=== PATIENT | female | born 1990 | race American Indian/Alaskan Native ===

== ENCOUNTER 2016-04-03 15:16 | Emergency (ER) | payer SELFPAY ==
[2016-04-03] MEDS ORDERED: TORADOL IM ONE (18:08)
--- NOTE | 2016-04-03 18:16 | Emergency Department Report ---
- General Chief Complaint: Upper Respiratory Infection Stated Complaint: SORE THROAT/SINUSES/HEADACHE Time Seen by Provider: 04/03/16 18:00 Source: patient Mode of arrival: Ambulatory Limitations: No Limitations - History of Present Illness Initial Comments: 25 y/o female complain of sore throat ,headache and runny nose x 3 days .pt denies taken any prior medication . MD Complaint: fever, cough, sore throat, nasal congestion Onset/Timin -: days(s) Severity: mild Severity scale (0 -10): 5 Quality: aching Consistency: constant Improves With: nothing Worsens With: nothing Associated Symptoms: denies other symptoms - Related Data Previous Rx's Medication Instructions Recorded Last Taken Type Amoxicillin/K Clav Tab [Augmentin 1 tab PO Q12HR #14 tab 04/03/16 Unknown Rx 875 mg] Ibuprofen [Motrin] 800 mg PO Q8HR PRN #30 tablet 04/03/16 Unknown Rx Promethazine Dm [Phenergan DM 5 ml PO Q6H PRN #120 04/03/16 Unknown Rx 6.25-15 mg/5 ml] Allergies Allergy/AdvReac Type Severity Reaction Status Date / Time No Known Allergies Allergy Unverified 04/03/16 16:10 ED Review of Systems ROS: Stated complaint: SORE THROAT/SINUSES/HEADACHE Other details as noted in HPI Constitutional: denies: chills, fever Eyes: denies: eye pain, eye discharge, vision change ENT: throat pain, congestion. denies: ear pain Respiratory: cough. denies: shortness of breath, wheezing Cardiovascular: denies: chest pain, palpitations Endocrine: no symptoms reported Gastrointestinal: denies: abdominal pain, nausea, diarrhea Genitourinary: denies: urgency, dysuria, discharge Musculoskeletal: denies: back pain, joint swelling, arthralgia Skin: denies: rash, lesions Neurological: denies: headache, weakness, paresthesias Psychiatric: denies: anxiety, depression Hematological/Lymphatic: denies: easy bleeding, easy bruising ED Past Medical Hx - Medications Home Medications: Home Medications Medication Instructions Recorded Confirmed Last Taken Type Amoxicillin/K Clav Tab [Augmentin 1 tab PO Q12HR #14 tab 04/03/16 Unknown Rx 875 mg] Ibuprofen [Motrin] 800 mg PO Q8HR PRN #30 tablet 04/03/16 Unknown Rx Promethazine Dm [Phenergan DM 5 ml PO Q6H PRN #120 04/03/16 Unknown Rx 6.25-15 mg/5 ml] ED Physical Exam - General Limitations: No Limitations General appearance: alert, in no apparent distress - Head Head exam: Present: atraumatic, normocephalic - Eye Eye exam: Present: normal appearance - ENT ENT exam: Present: mucous membranes moist - Expanded ENT Exam Expanded TM/Canal exam: Mastoid Tenderness: Right TM, Left TM Mouth exam: Present: normal external inspection Teeth exam: Present: normal inspection Throat exam: Positive: tonsillar erythema, tonsillomegaly, other (post nasal drip ) - Neck Neck exam: Present: normal inspection - Respiratory Respiratory exam: Present: normal lung sounds bilaterally. Absent: respiratory distress, wheezes, rales - Cardiovascular Cardiovascular Exam: Present: regular rate, normal rhythm. Absent: systolic murmur, diastolic murmur, rubs, gallop - GI/Abdominal GI/Abdominal exam: Present: soft, normal bowel sounds - Extremities Exam Extremities exam: Present: normal inspection - Back Exam Back exam: Present: normal inspection - Neurological Exam Neurological exam: Present: alert, oriented X3 - Psychiatric Psychiatric exam: Present: normal affect, normal mood - Skin Skin exam: Present: warm, dry, intact, normal color. Absent: rash ED Course Vital Signs 04/03/16 04/03/16 16:10 18:23 Temperature 99 F Pulse Rate 104 H 72 Respiratory 18 16 Rate Blood Pressure 95/64 Blood Pressure 98/63 [Right] O2 Sat by Pulse 97 100 Oximetry ED Medical Decision Making - Medical Decision Making sinusitis and pharyngitis pt was given toradol and decardon during ED course Critical care attestation.: If time is entered above; I have spent that time in minutes in the direct care of this critically ill patient, excluding procedure time. ED Disposition Clinical Impression: Sinusitis Qualifiers: Sinusitis location: frontal Chronicity: acute Recurrence: non-recurrent Qualified Code(s): J01.10 - Acute frontal sinusitis, unspecified Pharyngitis Qualifiers: Pharyngitis/tonsillitis etiology: unspecified etiology Qualified Code(s): J02.9 - Acute pharyngitis, unspecified Disposition: DISCHARGED TO HOME OR SELFCARE Is pt being admited?: No Does the pt Need Aspirin: No Condition: Stable Instructions: Sinusitis (ED), Pharyngitis (ED) Prescriptions: Amoxicillin/K Clav Tab [Augmentin 875 mg] 1 tab PO Q12HR #14 tab Ibuprofen [Motrin] 800 mg PO Q8HR PRN #30 tablet PRN Reason: Pain Promethazine Dm [Phenergan DM 6.25-15 mg/5 ml] 5 ml PO Q6H PRN #120 PRN Reason: Cough Referrals: PRIMARY CARE, [Primary Care Provider] - 3-5 Days [facility] [Outside] - 3-5 Days Forms: Work/School Release Form(ED) Time of Disposition: 18:38
[2016-04-03 18:24] VITALS: BP 98/63
[2016-04-03] MEDS ORDERED: DECADRON IM ONE (18:27)
== END 2016-04-03 18:51 | disposition home or self-care (01) ==
LOC: ED 15:16
DX: J01.10 Acute frontal sinusitis, unspecified (principal); J20.9 Acute bronchitis, unspecified
CPT/HCPCS: 87116; 87430; 96372; 99282; J1100; J1885

== ENCOUNTER 2016-05-23 00:51 | Emergency (ER) | payer SELFPAY ==
[2016-05-23 02:02] VITALS: BP 120/78
[2016-05-23] MEDS ORDERED: ZOFRAN ODT PO ONE (02:03)
[2016-05-23 03:53] LABS: Basophils % (Auto) 0.8 % (0.0-1.8); Eosinophils % (Auto) 0.6 % (0.0-4.3); Hematocrit 38.3 % (30.3-42.9); Hemoglobin 12.5 gm/dl (10.1-14.3); Mean Corpuscular HGB Conc 33 % (30-34); Mean Corpuscular Hemoglobin 30 pg (28-32); Mean Corpuscular Volume 93 fl (79-97); Platelet Count 247 K/mm3 (140-440); Red Blood Count 4.12 M/mm3 (3.65-5.03); Red Cell Distribution Width 13.8 % (13.2-15.2); White Blood Count 6.6 K/mm3 (4.5-11.0)
[2016-05-23 04:15] LABS: Alanine Aminotransferase 18 units/L (7-56); Albumin 3.9 g/dL (3.9-5); Albumin/Globulin Ratio 1.4 %; Alkaline Phosphatase 108 units/L (35-129); Anion Gap 16 mmol/L; BUN/Creatinine Ratio 17.14; Bilirubin,Total 0.4 mg/dL (0.1-1.2); Blood Urea Nitrogen 12 mg/dL (7-17); Calcium 8.7 mg/dL (8.4-10.2); Carbon Dioxide 23 mmol/L (22-30); Chloride 105.6 mmol/L (98-107); Glucose 97 mg/dL (65-100); Lipase 36 units/L (13-60); Potassium 3.9 mmol/L (3.6-5.0); Sodium 141 mmol/L (137-145); Total Protein 6.7 g/dL (6.3-8.2)
[2016-05-23 07:21] LABS: Bilirubin,Urine NEG (Negative); Blood,Urine NEG (Negative); Ketones,Urine NEG (Negative); Leukocyte Esterase,Urine NEG (Negative); Nitrite,Urine NEG (Negative); Protein,Urine <15 mg/dL mg/dL (Negative); RBC,Urine < 1.0 /HPF (0.0-6.0); Urobilinogen,Urine < 2.0 mg/dL (<2.0); WBC,Urine < 1.0 /HPF (0.0-6.0)
== END 2016-05-23 07:42 | disposition left against medical advice (07) ==
LOC: ED 00:51
DX: R10.9 Unspecified abdominal pain (principal); R11.2 Nausea with vomiting, unspecified; Z53.21 Procedure and treatment not carried out due to patient leaving prior to being seen by health care provider
CPT/HCPCS: 36415; 80053; 81001; 83690; 84703; 85025; Q0162

== ENCOUNTER 2017-04-28 05:41 | Emergency (ER) | payer SELFPAY ==
[2017-04-28 06:53] LABS: Basophils % (Auto) 1.1 % (0.0-1.8); Eosinophils % (Auto) 0.7 % (0.0-4.3); Hematocrit 37.5 % (30.3-42.9); Hemoglobin 12.6 gm/dl (10.1-14.3); Lymphocytes # (Auto) 0.3 K/mm3 (1.2-5.4); Lymphocytes % (Auto) 6.2 % (13.4-35.0); Mean Corpuscular HGB Conc 34 % (30-34); Mean Corpuscular Hemoglobin 31 pg (28-32); Mean Corpuscular Volume 92 fl (79-97); Monocytes # (Auto) 0.7 K/mm3 (0.0-0.8); Monocytes % (Auto) 14.6 % (0.0-7.3); Platelet Count 218 K/mm3 (140-440); Red Blood Count 4.08 M/mm3 (3.65-5.03); Red Cell Distribution Width 13.4 % (13.2-15.2)
[2017-04-28 07:13] LABS: Alanine Aminotransferase 10 units/L (7-56); Albumin 3.8 g/dL (3.9-5); BUN/Creatinine Ratio 9; Blood Urea Nitrogen 6 mg/dL (7-17); Calcium 8.6 mg/dL (8.4-10.2); Hemolysis Index 2; Lipase 15 units/L (13-60)
--- NOTE | 2017-04-28 09:40 | XRay Report ---
ABDOMINAL SERIES: History: Abdominal pain. Erect chest film shows no acute or significant changes involving the heart or lung cohen. Trace left pleural effusion or minor left basilar atelectasis is suspected. There is no evidence of free air beneath the diaphragms. The gas pattern within the abdomen is unremarkable. There is no evidence of bowel dilatation, significant air-fluid levels, or masses. Organ shadows are unremarkable. IMPRESSION: Unremarkable abdomen. Possible trace left pleural effusion. Pleurisy?
[2017-04-28] MEDS ORDERED: TORADOL IV ONE (09:46)
[2017-04-28] MEDS ORDERED: NACL 0.9% 1000 ML 1,000 ML IV ONE (09:46)
[2017-04-28] MEDS ORDERED: ZOFRAN IV ONE (09:46)
[2017-04-28 10:51] LABS: Bacteria,Urine 1+ /HPF (Negative); Bilirubin,Urine NEG (Negative); Blood,Urine NEG (Negative); Color,Urine Yellow (Yellow); Mucus,Urine 1+ /HPF; Protein,Urine <15 mg/dL mg/dL (Negative)
[2017-04-28 11:00] LABS: Amphetamine Screen,Urine PRESUMPTIVE NEGATIVE; Benzodiazepines Screen,Urine PRESUMPTIVE NEGATIVE; Cannabinoid Screen,Urine PRESUMPTIVE NEGATIVE; Cocaine Screen,Urine PRESUMPTIVE NEGATIVE; Methadone Screen,Urine PRESUMPTIVE NEGATIVE; Opiate Screen,Urine PRESUMPTIVE NEGATIVE
[2017-04-28] MEDS ORDERED: LIDOCAINE VISCOUS 2% ONE (11:27)
[2017-04-28] MEDS ORDERED: LIDOCAINE VISCOUS 2% PO ONE ×2 (11:34→11:47)
[2017-04-28] MEDS ORDERED: TESSALON PERLES PO ONE (11:47)
--- NOTE | 2017-04-28 11:57 | Emergency Department Report ---
HPI - General Chief Complaint: Abdominal Pain Time Seen by Provider: 04/28/17 09:42 - HPI HPI: The patient is 26-year-old female who presents for evaluation of abdominal pain in the URI symptoms. The patient reports a nonproductive cough and soreness of throat since last night at 10 PM. She states that 3 hours prior to arrival she developed nausea, vomiting, and crampy in quality epigastric abdominal pain, currently 5/10 in severity, exacerbated with vomiting. The patient denies fever , chills, night sweats, chest pain, dyspnea, hemoptysis, diarrhea, blood in the stool, dark tarry stool, dysuria, hematuria, flank pain, genital discharge, inability to pass flatus. ED Past Medical Hx - Past Medical History Previous Medical History?: No - Surgical History Past Surgical History?: No - Social History Smoking Status: Current Every Day Smoker Substance Use Type: None - Medications Home Medications: Home Medications Medication Instructions Recorded Confirmed Last Taken Type Ibuprofen [Motrin 200 MG tab] 800 mg PO Q8H PRN 04/28/17 04/28/17 Unknown History Ibuprofen [Motrin] 800 mg PO Q8HR PRN #15 tablet 04/28/17 Unknown Rx Ondansetron [Zofran TAB] 4 mg PO Q8HR PRN #20 tablet 04/28/17 Unknown Rx Phenylephrine/Dm/Acetaminop/GG 20 ml PO Q4HR PRN #180 liquid 04/28/17 Unknown Rx [Mucinex Opvm-Hfi-Jcmesvppfz Lq] ED Review of Systems ROS: Stated complaint: NAUSEA Other details as noted in HPI Constitutional: denies: fever ENT: reports throat or neck pain Respiratory: reports cough denies: shortness of breath Cardiovascular: reports chest pain Endocrine: denies unexplained weight loss or gain Gastrointestinal: reports abdominal pain, nausea Genitourinary: denies: dysuria Musculoskeletal: denies: leg swelling Skin: denies: rash Neurological: denies: headache Hematological/Lymphatic: denies: easy bleeding or easy bruising Psych: denies sadness or hopelessness Physical Exam - Physical Exam Vital Signs: Vital Signs 04/28/17 04/28/17 04/28/17 06:03 09:03 09:15 Temperature 98 F Pulse Rate 98 H Respiratory 20 Rate Blood Pressure 132/78 111/59 O2 Sat by Pulse 100 97 Oximetry 03/10/0804/28/17 04/28/17 09:20 09:30 09:45 Temperature Pulse Rate Respiratory 14 Rate Blood Pressure 111/69 117/59 O2 Sat by Pulse 99 99 99 Oximetry 04/28/17 04/28/17 04/28/17 10:00 10:16 10:30 Temperature Pulse Rate 89 Respiratory 16 Rate Blood Pressure 118/78 131/72 125/79 O2 Sat by Pulse 100 97 Oximetry 04/28/17 04/28/17 04/28/17 10:45 11:00 11:15 Temperature Pulse Rate Respiratory Rate Blood Pressure 116/81 118/72 118/74 O2 Sat by Pulse 96 100 Oximetry 04/28/17 11:30 Temperature Pulse Rate Respiratory Rate Blood Pressure 111/68 O2 Sat by Pulse 99 Oximetry Physical Exam: General: well-nourished, well-developed, no acute distress Head: Normocephalic, atraumatic Eyes: normal sclera ENT: Mucous membranes are pink and moist Neck: trachea midline, neck supple, No neck stiffness, no cervical adenopathy Respiratory: Breath sounds equal bilaterally, no wheezing, rales, or rhonchi Cardio: S1 and S2 present, no murmurs, rubs, gallops, capillary refill is brisk Abdomen: Normoactive bowel sounds, soft abdomen, no rigidity, no guarding or rebound tenderness Chest WALL/Back: No tenderness to palpation of the chest wall, no CVA tenderness with percussion Musc: No pitting edema Skin: No rash Neuro: no facial drooping, normal speech Psych: Normal affect ED Course Vital Signs 04/28/17 04/28/17 04/28/17 06:03 09:03 09:15 Temperature 98 F Pulse Rate 98 H Respiratory 20 Rate Blood Pressure 132/78 111/59 O2 Sat by Pulse 100 97 Oximetry 04/28/17 04/28/17 04/28/17 09:20 09:30 09:45 Temperature Pulse Rate Respiratory 14 Rate Blood Pressure 111/69 117/59 O2 Sat by Pulse 99 99 99 Oximetry 04/28/17 04/28/17 04/28/17 10:00 10:16 10:30 Temperature Pulse Rate 89 Respiratory 16 Rate Blood Pressure 118/78 131/72 125/79 O2 Sat by Pulse 100 97 Oximetry 03/08/18 03/08/18 03/08/18 10:45 11:00 11:15 Temperature Pulse Rate Respiratory Rate Blood Pressure 116/81 118/72 118/74 O2 Sat by Pulse 96 100 Oximetry 04/28/17 11:30 Temperature Pulse Rate Respiratory Rate Blood Pressure 111/68 O2 Sat by Pulse 99 Oximetry ED Medical Decision Making - Lab Data Result diagrams: 04/28/17 06:36 04/28/17 06:36 - Medical Decision Making The patient was seen and examined by myself. The patient is placed on a pain management physician and continuous pulse ox. On initial evaluation, the patient was found to be in no distress. Evaluation orders are placed. IV access is established and the patient is given 1 L normal saline fluid bolus and Zofran for nausea, and IV analgesic for pain. Lab results were non-concerning including WBC, hemoglobin, hematocrit, renal function, LFTs, lipase, neg preg. The patient was reevaluated and reported that their symptoms were markedly improved. The patient is stable for discharge with outpatient follow-up. The patient is given follow-up and return instructions. The patient expressed understanding and agreed with the plan. The patient is discharged in stable condition. Critical care attestation.: If time is entered above; I have spent that time in minutes in the direct care of this critically ill patient, excluding procedure time. ED Disposition Clinical Impression: Abdominal pain, acute, epigastric, Dehydration, Acute viral syndrome, Upper respiratory infection, acute Pharyngitis, acute Qualifiers: Pharyngitis/tonsillitis etiology: unspecified etiology Qualified Code(s): J02.9 - Acute pharyngitis, unspecified Disposition: - TO HOME OR SELFCARE Is pt being admited?: No Does the pt Need Aspirin: No Condition: Stable Instructions: Abdominal Pain (ED), Viral Syndrome (ED), Pharyngitis (ED), Cold Symptoms (ED), Gastroenteritis (ED), Food Poisoning (ED) Referrals: PRIMARY CARE,MD [Primary Care Provider] - 3-5 Days Time of Disposition: 12:12
[2017-04-28 12:43] VITALS: BP 128/71
== END 2017-04-28 12:43 | disposition home or self-care (01) ==
LOC: ED 05:41
DX: E86.0 Dehydration (principal); R10.13 Epigastric pain; J02.9 Acute pharyngitis, unspecified; B34.9 Viral infection, unspecified; R11.2 Nausea with vomiting, unspecified; F17.200 Nicotine dependence, unspecified, uncomplicated; Z79.899 Other long term (current) drug therapy
CPT/HCPCS: 36415; 74022; 80053; 80307; 81001; 83690; 84703; 85025; 96361; 96374; 96375; 99285; J1885; J2405; J7030

== ENCOUNTER 2019-01-07 06:39 | Emergency (ER) | payer SELFPAY ==
--- NOTE | 2019-01-07 07:45 | Emergency Department Report ---
ED ENT HPI - General Chief complaint: Dental/Oral Stated complaint: TOOTHACHE Time Seen by Provider: 01/07/19 07:15 Source: patient Mode of arrival: Ambulatory Limitations: No Limitations - History of Present Illness Initial comments: This is a 28-year-old -Spanish female who presents to the emergency room with left-sided upper dental pain for 2 days. Patient reports a history of dental pain on the left side that is intermittent from molars. Denies follow up with dentist. Denies difficulty swallowing, sore throat, fever, chills, facial swelling. MD complaint: tooth pain Onset/Timin -: days(s) Location: tooth # (16) Severity: severe Severity scale (0 -10): 10 Quality: aching Consistency: constant Improves with: none Worsens with: eating Associated Symptoms: gum swelling, toothache. denies: fever, cough, pain with swallowing, sore throat, tinnitus, hearing loss, discharge from ear, rhinorrhea - Related Data Home Medications Medication Instructions Recorded Confirmed Last Taken Ibuprofen [Motrin 200 MG tab] 800 mg PO Q8H PRN 04/28/17 04/28/17 Unknown Previous Rx's Medication Instructions Recorded Last Taken Type Ibuprofen [Motrin] 800 mg PO Q8HR PRN #15 tablet 04/28/17 Unknown Rx Ondansetron [Zofran TAB] 4 mg PO Q8HR PRN #20 tablet 04/28/17 Unknown Rx Phenylephrine/Dm/Acetaminop/GG 20 ml PO Q4HR PRN #180 liquid 04/28/17 Unknown Rx [Mucinex Yboz-Upt-Ixwdzbopoz Lq] Amoxicillin [Trimox CAP] 500 mg PO BID #14 capsule 01/07/19 Unknown Rx Naproxen [Naprosyn] 500 mg PO BID #20 tablet 01/07/19 Unknown Rx traMADoL [Ultram 50 MG tab] 50 mg PO Q6HR PRN #12 tablet 01/07/19 Unknown Rx Allergies Allergy/AdvReac Type Severity Reaction Status Date / Time No Known Allergies Allergy Verified 04/28/16 02:59 ED Dental HPI - General Chief complaint: Dental/Oral Stated complaint: TOOTHACHE Time Seen by Provider: 01/07/19 07:15 Source: patient Mode of arrival: Ambulatory Limitations: No Limitations - Related Data Home Medications Medication Instructions Recorded Confirmed Last Taken Ibuprofen [Motrin 200 MG tab] 800 mg PO Q8H PRN 04/28/17 04/28/17 Unknown Previous Rx's Medication Instructions Recorded Last Taken Type Ibuprofen [Motrin] 800 mg PO Q8HR PRN #15 tablet 04/28/17 Unknown Rx Ondansetron [Zofran TAB] 4 mg PO Q8HR PRN #20 tablet 04/28/17 Unknown Rx Phenylephrine/Dm/Acetaminop/GG 20 ml PO Q4HR PRN #180 liquid 04/28/17 Unknown Rx [Mucinex Zxgc-Wcp-Tocpvxujvr Lq] Amoxicillin [Trimox CAP] 500 mg PO BID #14 capsule 01/07/19 Unknown Rx Naproxen [Naprosyn] 500 mg PO BID #20 tablet 01/07/19 Unknown Rx traMADoL [Ultram 50 MG tab] 50 mg PO Q6HR PRN #12 tablet 01/07/19 Unknown Rx Allergies Allergy/AdvReac Type Severity Reaction Status Date / Time No Known Allergies Allergy Verified 04/28/16 02:59 ED Review of Systems ROS: Stated complaint: TOOTHACHE Other details as noted in HPI Constitutional: denies: chills, fever ENT: dental pain. denies: ear pain, throat pain Respiratory: denies: cough, shortness of breath, wheezing Cardiovascular: denies: chest pain, palpitations Gastrointestinal: denies: abdominal pain, nausea, diarrhea Skin: denies: rash, lesions Neurological: denies: headache, weakness, paresthesias Psychiatric: denies: anxiety, depression ED Past Medical Hx - Past Medical History Previous Medical History?: Yes Hx Asthma: Yes (exercise induced) - Surgical History Past Surgical History?: No - Social History Smoking Status: Never Smoker - Medications Home Medications: Home Medications Medication Instructions Recorded Confirmed Last Taken Type Ibuprofen [Motrin 200 MG tab] 800 mg PO Q8H PRN 04/28/17 04/28/17 Unknown History Ibuprofen [Motrin] 800 mg PO Q8HR PRN #15 tablet 04/28/17 Unknown Rx Ondansetron [Zofran TAB] 4 mg PO Q8HR PRN #20 tablet 04/28/17 Unknown Rx Phenylephrine/Dm/Acetaminop/GG 20 ml PO Q4HR PRN #180 liquid 04/28/17 Unknown Rx [Mucinex Waom-Hdi-Qahkwcqcbf Lq] Amoxicillin [Trimox CAP] 500 mg PO BID #14 capsule 01/07/19 Unknown Rx Naproxen [Naprosyn] 500 mg PO BID #20 tablet 01/07/19 Unknown Rx traMADoL [Ultram 50 MG tab] 50 mg PO Q6HR PRN #12 tablet 01/07/19 Unknown Rx ED Physical Exam - General Limitations: No Limitations General appearance: alert, in no apparent distress, obese - ENT ENT exam: Present: normal orophraynx, mucous membranes moist, other (#16 molar gingival swelling, no induration or abscess, tenderness) - Neck Neck exam: Present: normal inspection - Respiratory Respiratory exam: Present: normal lung sounds bilaterally. Absent: respiratory distress - Cardiovascular Cardiovascular Exam: Present: regular rate, normal rhythm. Absent: systolic murmur, diastolic murmur, rubs, gallop - GI/Abdominal GI/Abdominal exam: Present: soft, normal bowel sounds - Neurological Exam Neurological exam: Present: alert, oriented X3 - Psychiatric Psychiatric exam: Present: normal affect, normal mood - Skin Skin exam: Present: warm, dry, intact, normal color. Absent: rash ED Course Vital Signs 01/07/19 01/07/19 06:44 07:52 Temperature 98.7 F Pulse Rate 93 H Respiratory 18 18 Rate Blood Pressure 117/81 O2 Sat by Pulse 98 Oximetry ED Medical Decision Making - Medical Decision Making 28-year-old female that presents with #6 dental pain for 2 days. Patient is stable and was examined by me. Given norco once in ER. There is gingival swelling, no signs of abscess, no trismus. Susceptible of toothache from impacted tooth. Referral to emergency dental clinic. Start tramadol and naproxen for pain. Discussed plan with patient. She agreed with ER plan. Follow up with dentist. Patient discharged home stable. Critical care attestation.: If time is entered above; I have spent that time in minutes in the direct care of this critically ill patient, excluding procedure time. ED Disposition Clinical Impression: Toothache Disposition: DC-01 TO HOME OR SELFCARE Is pt being admited?: No Condition: Stable Instructions: Toothache (ED) Additional Instructions: Complete all days of antibiotics as prescribed for 14 days. Follow up with Dentist from the referrals list below or the handout for community resources. Prescriptions: Naproxen [Naprosyn] 500 mg PO BID #20 tablet Amoxicillin [Trimox CAP] 500 mg PO BID #14 capsule traMADoL [Ultram 50 MG tab] 50 mg PO Q6HR PRN #12 tablet PRN Reason: Pain Referrals: [facility] [Outside] - 3-5 Days [facility] [Outside] - 3-5 Days [facility] [Outside] - 3-5 Days Time of Disposition: 07:54
[2019-01-07] MEDS ORDERED: HYDROcodone/ACETAMINOPHEN 5-325 MG TAB PO ONE (07:47)
[2019-01-07 08:19] VITALS: BP 113/78
== END 2019-01-07 08:17 | disposition home or self-care (01) ==
LOC: ED 06:39
DX: K08.89 Other specified disorders of teeth and supporting structures (principal); J45.909 Unspecified asthma, uncomplicated

== ENCOUNTER 2019-02-24 04:20 | Emergency (ER) | payer SELFPAY ==
[2019-02-24 05:12] LABS: Basophils % (Auto) 1.2 % (0.0-1.8); Eosinophils % (Auto) 0.8 % (0.0-4.3); Hematocrit 38.2 % (30.3-42.9); Hemoglobin 12.5 gm/dl (10.1-14.3); Lymphocytes # (Auto) 1.3 K/mm3 (1.2-5.4); Lymphocytes % (Auto) 20.6 % (13.4-35.0); Mean Corpuscular HGB Conc 33 % (30-34); Mean Corpuscular Volume 91 fl (79-97); Mean Platelet Volume 8.6 fl (6-12); Monocytes % (Auto) 13.3 % (0.0-7.3); Platelet Count 311 K/mm3 (140-440); Red Blood Count 4.21 M/mm3 (3.65-5.03); Red Cell Distribution Width 14.4 % (13.2-15.2)
[2019-02-24 05:13] LABS: Basophils # (Auto) 0.1 K/mm3 (0.0-0.1); Eosinophils # (Auto) 0.1 K/mm3 (0.0-0.4); Monocytes # (Auto) 0.9 K/mm3 (0.0-0.8)
[2019-02-24 05:24] LABS: Alanine Aminotransferase 10 units/L (7-56); Albumin 4.3 g/dL (3.9-5); BUN/Creatinine Ratio 13; Blood Urea Nitrogen 12 mg/dL (7-17); Calcium 8.8 mg/dL (8.4-10.2); Hemolysis Index 1
[2019-02-24 05:34] LABS: Bilirubin,Urine NEG (Negative); Blood,Urine MOD (Negative); Color,Urine Yellow (Yellow); Mucus,Urine FEW /HPF; Protein,Urine <15 mg/dL mg/dL (Negative)
[2019-02-24] MEDS ORDERED: SODIUM CHLORIDE 0.9% 1000 ML 1,000 ML IV ONE (08:41)
[2019-02-24] MEDS ORDERED: ONDANSETRON 4 MG/2 ML INJ IV ONE (08:41)
[2019-02-24] MEDS ORDERED: KETOROLAC 30 MG/1 ML INJ IV ONE (08:41)
--- NOTE | 2019-02-24 09:55 | Emergency Department Report ---
ED N/V/D HPI - General Chief complaint: Abdominal Pain Stated complaint: ABD PAIN, NAUSEA Time Seen by Provider: 02/24/19 08:27 Source: patient Mode of arrival: Ambulatory Limitations: No Limitations - History of Present Illness Initial comments: Patient is a 28-year-old female presents emergency room with complaints of nausea and diarrhea that began last night. She has associated lower abdominal cramping. She states that she drank some beverley josephine which improved her nausea. She denies any fever, dysuria, vomiting, hematochezia, hematemesis, melena. She states she has a past medical history of exercise-induced asthma. She denies any allergies medications. She states her last menstrual cycle was the middle of January. She denies any known sick contacts. - Related Data Home Medications Medication Instructions Recorded Confirmed Last Taken Ibuprofen [Motrin 200 MG tab] 800 mg PO Q8H PRN 04/28/17 04/28/17 Unknown Previous Rx's Medication Instructions Recorded Last Taken Type Ibuprofen [Motrin] 800 mg PO Q8HR PRN #15 tablet 04/28/17 Unknown Rx Ondansetron [Zofran TAB] 4 mg PO Q8HR PRN #20 tablet 04/28/17 Unknown Rx Phenylephrine/Dm/Acetaminop/GG 20 ml PO Q4HR PRN #180 liquid 04/28/17 Unknown Rx [Mucinex Nstf-Oew-Obyntlnath Lq] Amoxicillin [Trimox CAP] 500 mg PO BID #14 capsule 01/07/19 Unknown Rx Naproxen [Naprosyn] 500 mg PO BID #20 tablet 01/07/19 Unknown Rx traMADoL [Ultram 50 MG tab] 50 mg PO Q6HR PRN #12 tablet 01/07/19 Unknown Rx Dicyclomine [Bentyl] 20 mg PO Q6HR PRN #14 tablet 02/24/19 Unknown Rx Ondansetron [Zofran Odt] 4 mg PO Q8HR PRN #14 tab.rapdis 02/24/19 Unknown Rx Allergies Allergy/AdvReac Type Severity Reaction Status Date / Time No Known Allergies Allergy Verified 04/28/16 02:59 ED Review of Systems ROS: Stated complaint: ABD PAIN, NAUSEA Other details as noted in HPI Comment: All other systems reviewed and negative ED Past Medical Hx - Past Medical History Previous Medical History?: Yes Hx Asthma: Yes (exercise induced) - Surgical History Past Surgical History?: No - Social History Smoking Status: Never Smoker Substance Use Type: None - Medications Home Medications: Home Medications Medication Instructions Recorded Confirmed Last Taken Type Ibuprofen [Motrin 200 MG tab] 800 mg PO Q8H PRN 04/28/17 04/28/17 Unknown History Ibuprofen [Motrin] 800 mg PO Q8HR PRN #15 tablet 04/28/17 Unknown Rx Ondansetron [Zofran TAB] 4 mg PO Q8HR PRN #20 tablet 04/28/17 Unknown Rx Phenylephrine/Dm/Acetaminop/GG 20 ml PO Q4HR PRN #180 liquid 04/28/17 Unknown Rx [Mucinex Mvdl-Yjn-Ymzrcfjjqm Lq] Amoxicillin [Trimox CAP] 500 mg PO BID #14 capsule 01/07/19 Unknown Rx Naproxen [Naprosyn] 500 mg PO BID #20 tablet 01/07/19 Unknown Rx traMADoL [Ultram 50 MG tab] 50 mg PO Q6HR PRN #12 tablet 01/07/19 Unknown Rx Dicyclomine [Bentyl] 20 mg PO Q6HR PRN #14 tablet 02/24/19 Unknown Rx Ondansetron [Zofran Odt] 4 mg PO Q8HR PRN #14 tab.rapdis 02/24/19 Unknown Rx ED Physical Exam - General Limitations: No Limitations General appearance: alert, in no apparent distress - Head Head exam: Present: atraumatic, normocephalic - Eye Eye exam: Present: normal appearance - ENT ENT exam: Present: mucous membranes moist - Respiratory Respiratory exam: Present: normal lung sounds bilaterally. Absent: respiratory distress, wheezes, rales, rhonchi, stridor, chest wall tenderness, accessory muscle use, decreased breath sounds, prolonged expiratory - Cardiovascular Cardiovascular Exam: Present: regular rate, normal rhythm, normal heart sounds. Absent: systolic murmur, diastolic murmur, rubs, gallop - GI/Abdominal GI/Abdominal exam: Present: soft, normal bowel sounds, other (no peritoneal signs, negative murphys sign, negative mcburneys sign, negative cullens or brown turners sign). Absent: distended, tenderness, guarding, rebound, rigid, mass, hernia - Neurological Exam Neurological exam: Present: alert, oriented X3 - Psychiatric Psychiatric exam: Present: normal affect, normal mood - Skin Skin exam: Present: warm, dry, intact ED Course Vital Signs 02/24/19 04:25 Temperature 97.6 F Pulse Rate 98 H Respiratory 18 Rate Blood Pressure 123/84 O2 Sat by Pulse 99 Oximetry ED Medical Decision Making - Lab Data Result diagrams: 02/24/19 04:51 02/24/19 04:51 Lab Results 02/24/19 02/24/19 02/24/19 Range/Units 04:51 04:51 04:51 WBC 6.5 (4.5-11.0) K/mm3 RBC 4.21 (3.65-5.03) M/mm3 Hgb 12.5 (10.1-14.3) gm/dl Hct 38.2 (30.3-42.9) % MCV 91 (79-97) fl MCH 30 (28-32) pg MCHC 33 (30-34) % RDW 14.4 (13.2-15.2) % Plt Count 311 (140-440) K/mm3 Lymph % (Auto) 20.6 (13.4-35.0) % [place] % (Auto) 13.3 H (0.0-7.3) % Eos % (Auto) 0.8 (0.0-4.3) % Baso % (Auto) 1.2 (0.0-1.8) % Lymph # 1.3 (1.2-5.4) K/mm3 [place] # 0.9 H (0.0-0.8) K/mm3 Eos # 0.1 (0.0-0.4) K/mm3 Baso # 0.1 (0.0-0.1) K/mm3 Seg Neutrophils % 64.1 (40.0-70.0) % Seg Neutrophils # 4.2 (1.8-7.7) K/mm3 Sodium 139 (137-145) mmol/L Potassium 3.9 (3.6-5.0) mmol/L Chloride 106.5 (98-107) mmol/L Carbon Dioxide 22 (22-30) mmol/L Anion Gap 14 mmol/L BUN 12 (7-17) mg/dL Creatinine 0.9 (0.7-1.2) mg/dL Estimated GFR > 60 ml/min BUN/Creatinine Ratio 13 % Glucose 107 H (65-100) mg/dL Calcium 8.8 (8.4-10.2) mg/dL Total Bilirubin 0.40 (0.1-1.2) mg/dL AST 19 (5-40) units/L ALT 10 (7-56) units/L Alkaline Phosphatase 94 (35-129) units/L Total Protein 7.2 (6.3-8.2) g/dL Albumin 4.3 (3.9-5) g/dL Albumin/Globulin Ratio 1.5 % HCG, Qual Negative (Negative) Urine Color (Yellow) Urine Turbidity (Clear) Urine pH (5.0-7.0) Ur Specific [place] (1.003-1.030) Urine Protein (Negative) mg/dL Urine Glucose (UA) (Negative) mg/dL Urine Ketones (Negative) mg/dL Urine Blood (Negative) Urine Nitrite (Negative) Urine Bilirubin (Negative) Urine Urobilinogen (<2.0) mg/dL Ur Leukocyte Esterase (Negative) Urine WBC (Auto) (0.0-6.0) /HPF Urine RBC (Auto) (0.0-6.0) /HPF U Epithel Cells (Auto) (0-13.0) /HPF Urine Mucus /HPF 02/24/19 Range/Units 05:08 WBC (4.5-11.0) K/mm3 RBC (3.65-5.03) M/mm3 Hgb (10.1-14.3) gm/dl Hct (30.3-42.9) % MCV (79-97) fl MCH (28-32) pg MCHC (30-34) % RDW (13.2-15.2) % Plt Count (140-440) K/mm3 Lymph % (Auto) (13.4-35.0) % [place] % (Auto) (0.0-7.3) % Eos % (Auto) (0.0-4.3) % Baso % (Auto) (0.0-1.8) % Lymph # (1.2-5.4) K/mm3 [place] # (0.0-0.8) K/mm3 Eos # (0.0-0.4) K/mm3 Baso # (0.0-0.1) K/mm3 Seg Neutrophils % (40.0-70.0) % Seg Neutrophils # (1.8-7.7) K/mm3 Sodium (137-145) mmol/L Potassium (3.6-5.0) mmol/L Chloride (98-107) mmol/L Carbon Dioxide (22-30) mmol/L Anion Gap mmol/L BUN (7-17) mg/dL Creatinine (0.7-1.2) mg/dL Estimated GFR ml/min BUN/Creatinine Ratio % Glucose (65-100) mg/dL Calcium (8.4-10.2) mg/dL Total Bilirubin (0.1-1.2) mg/dL AST (5-40) units/L ALT (7-56) units/L Alkaline Phosphatase (35-129) units/L Total Protein (6.3-8.2) g/dL Albumin (3.9-5) g/dL Albumin/Globulin Ratio % HCG, Qual (Negative) Urine Color Yellow (Yellow) Urine Turbidity Clear (Clear) Urine pH 8.0 H (5.0-7.0) Ur Specific [place] 1.023 (1.003-1.030) Urine Protein <15 mg/dl (Negative) mg/dL Urine Glucose (UA) Neg (Negative) mg/dL Urine Ketones Neg (Negative) mg/dL Urine Blood Mod (Negative) Urine Nitrite Neg (Negative) Urine Bilirubin Neg (Negative) Urine Urobilinogen 2.0 (<2.0) mg/dL Ur Leukocyte Esterase Neg (Negative) Urine WBC (Auto) 3.0 (0.0-6.0) /HPF Urine RBC (Auto) 4.0 (0.0-6.0) /HPF U Epithel Cells (Auto) 6.0 (0-13.0) /HPF Urine Mucus Few /HPF - Medical Decision Making Patient is a 28-year-old female presents emergency room with complaints of nausea and diarrhea that began last night. She has associated lower abdominal cramping. She states that she drank some beverley josephine which improved her nausea. She denies any fever, dysuria, vomiting, hematochezia, hematemesis, melena. She states she has a past medical history of exercise-induced asthma. She denies any allergies medications. She states her last menstrual cycle was the middle of January. She denies any known sick contacts. vitals are normal. no abnormality on physical examination as documented in chart. no abd TTP, no guarding, no rebound, normal bowel sounds. Patient given 1 L fluids, Zofran, Toradol and her symptoms improved. Patient's labs are normal and urine is within normal limits. pt given prescription for Zofran and Bentyl. advised patient Take medication as prescribed as needed. Increase your fluid intake over the next several days. Eat a bland diet. Follow up with a primary care doctor in the next 2-3 days. Return to the emergency room immediately for any new or worsening symptoms including but not limited to worsening abdominal pain, unable to tolerate by mouth intake, fever, etc. - Differential Diagnosis gastroenteritis, viral illness, colitis, diverticulitis, UTI, appendicitis Critical care attestation.: If time is entered above; I have spent that time in minutes in the direct care of this critically ill patient, excluding procedure time. ED Disposition Clinical Impression: Nausea, Abdominal cramping Diarrhea Qualifiers: Diarrhea type: unspecified type Qualified Code(s): R19.7 - Diarrhea, unspecified Disposition: TO HOME OR SELFCARE Is pt being admited?: No Does the pt Need Aspirin: No Condition: Stable Instructions: Gastroenteritis (ED), Abdominal Pain (ED) Additional Instructions: Take medication as prescribed as needed. Increase your fluid intake over the next several days. Eat a bland diet. Follow up with a primary care doctor in the next 2-3 days. Return to the emergency room immediately for any new or worsening symptoms including but not limited to worsening abdominal pain, unable to tolerate by mouth intake, fever, etc. Prescriptions: Dicyclomine [Bentyl] 20 mg PO Q6HR PRN #14 tablet PRN Reason: abdominal cramping Ondansetron [Zofran Odt] 4 mg PO Q8HR PRN #14 tab.rapdis PRN Reason: Nausea And Vomiting Referrals: MAT GUPTA MD [Staff Physician] - 2-3 Days [facility] [Outside] - 2-3 Days [facility] [Outside] - 2-3 Days Time of Disposition: 09:53 Print Language: TELUGU
[2019-02-24 10:09] VITALS: BP 124/84
== END 2019-02-24 10:08 | disposition home or self-care (01) ==
LOC: ED 04:20
DX: R11.0 Nausea (principal); R19.7 Diarrhea, unspecified; R10.30 Lower abdominal pain, unspecified; J45.909 Unspecified asthma, uncomplicated; Z79.899 Other long term (current) drug therapy
CPT/HCPCS: 36415; 80053; 81001; 84703; 85025; 96361; 96374; 96375; 99283; J1885; J2405; J7030

== ENCOUNTER 2019-04-07 02:50 | Emergency (ER) | payer SELFPAY ==
[2019-04-07] MEDS ORDERED: ONDANSETRON 4 MG ODT TAB PO ONE (03:20)
[2019-04-07 04:10] LABS: Alanine Aminotransferase 11 units/L (7-56); Albumin 4.4 g/dL (3.9-5); BUN/Creatinine Ratio 14; Blood Urea Nitrogen 13 mg/dL (7-17); Calcium 9.3 mg/dL (8.4-10.2); Hemolysis Index 7
[2019-04-07 04:26] LABS: Hematocrit 38.6 % (30.3-42.9); Hemoglobin 12.6 gm/dl (10.1-14.3); Mean Corpuscular HGB Conc 33 % (30-34); Mean Corpuscular Volume 89 fl (79-97); Red Blood Count 4.32 M/mm3 (3.65-5.03); Red Cell Distribution Width 14.7 % (13.2-15.2)
[2019-04-07 04:27] LABS: Basophils # (Auto) 0.1 K/mm3 (0.0-0.1); Basophils % (Auto) 1.2 % (0.0-1.8); Eosinophils # (Auto) 0.1 K/mm3 (0.0-0.4); Eosinophils % (Auto) 1.1 % (0.0-4.3); Lymphocytes # (Auto) 1.8 K/mm3 (1.2-5.4); Lymphocytes % (Auto) 34.2 % (13.4-35.0); Monocytes # (Auto) 0.7 K/mm3 (0.0-0.8); Monocytes % (Auto) 12.2 % (0.0-7.3); Platelet Count 268 K/mm3 (140-440)
[2019-04-07] MEDS ORDERED: METOCLOPRAMIDE 10 MG/2 ML INJ IV ONE (04:39)
[2019-04-07] MEDS ORDERED: diphenhydrAMINE 50 MG/ML VIAL IV ONE ×2 (04:39→05:41)
[2019-04-07] MEDS ORDERED: SODIUM CHLORIDE 0.9% 1000 ML 1,000 ML IV ONE (04:39)
[2019-04-07] MEDS ORDERED: FAMOTIDINE 20 MG/2 ML INJ IV ONE (04:39)
--- NOTE | 2019-04-07 06:46 | Emergency Department Report ---
ED N/V/D HPI - General Chief complaint: Abdominal Pain Stated complaint: N/V, LIGHTHEADED Source: patient Mode of arrival: Ambulatory Limitations: No Limitations - History of Present Illness Initial comments: Patient is a nulliparous 28-year-old -[place] female with no past medical history who presents to the ED with complaint of acute onset persistent nausea and vomiting with diarrhea and epigastric pain for the last 12 hours after eating at a fast food restaurant over 12 hours ago. Patient states that she has not been able to keep anything down in the last 6 hours because of persistent nausea and vomiting and diarrhea. Patient denies dizziness, syncope, chest pain, shortness of breath, cough, sore throat, headache, change in vision, dysuria, urinary frequency and urgency, fever, chills, low back pain or hematemesis, hematochezia or vaginal bleeding. Patient states that no one else at home has had similar symptoms. MD complaint: nausea, vomiting, diarrhea, abdominal pain -: Sudden, hour(s) (12) Description of Vomiting: food contents, watery Description of Diarrhea: water Associated Abdominal Pain: Yes (epigastric) Location: epigastric Radiation: none Severity: severe Pain Scale: 7 Quality: cramping, aching, sharp Consistency: intermittent Improves with: none Worsens with: eating, vomiting Context: possible food poisoning Associated Symptoms: denies other symptoms, myalgias, loss of appetite, malaise, nausea/vomiting. denies: chest pain, cough, diaphoresis, fever/chills, headaches, rash, dysuria, shortness of breath, syncope, weakness - Related Data Home Medications Medication Instructions Recorded Confirmed Last Taken Ibuprofen [Motrin 200 MG tab] 800 mg PO Q8H PRN 04/28/17 04/28/17 Unknown Previous Rx's Medication Instructions Recorded Last Taken Type Ibuprofen [Motrin] 800 mg PO Q8HR PRN #15 tablet 04/28/17 Unknown Rx Ondansetron [Zofran TAB] 4 mg PO Q8HR PRN #20 tablet 04/28/17 Unknown Rx Phenylephrine/Dm/Acetaminop/GG 20 ml PO Q4HR PRN #180 liquid 04/28/17 Unknown Rx [Mucinex Afey-Jjo-Qpntsweqes Lq] Amoxicillin [Trimox CAP] 500 mg PO BID #14 capsule 01/07/19 Unknown Rx Naproxen [Naprosyn] 500 mg PO BID #20 tablet 01/07/19 Unknown Rx traMADoL [Ultram 50 MG tab] 50 mg PO Q6HR PRN #12 tablet 01/07/19 Unknown Rx Dicyclomine [Bentyl] 20 mg PO Q6HR PRN #14 tablet 02/24/19 Unknown Rx Ondansetron [Zofran Odt] 4 mg PO Q8HR PRN #14 tab.rapdis 02/24/19 Unknown Rx Dicyclomine [Bentyl] 20 mg PO Q6H PRN #24 tablet 04/07/19 Unknown Rx Famotidine [Pepcid] 20 mg PO Q12H #30 tablet 04/07/19 Unknown Rx Ondansetron [Zofran ODT TAB] 8 mg PO Q8HR PRN #24 tab.rapdis 04/07/19 Unknown Rx diphenhydrAMINE [Benadryl CAP] 25 mg PO Q6HR PRN #20 capsule 04/07/19 Unknown Rx Allergies Allergy/AdvReac Type Severity Reaction Status Date / Time No Known Allergies Allergy Verified 04/28/16 02:59 ED Review of Systems ROS: Stated complaint: N/V, LIGHTHEADED Other details as noted in HPI Constitutional: denies: chills, fever Eyes: denies: eye pain, eye discharge, vision change ENT: denies: ear pain, throat pain Respiratory: denies: cough, shortness of breath, wheezing Cardiovascular: denies: chest pain, palpitations Endocrine: no symptoms reported Gastrointestinal: abdominal pain, nausea, vomiting, diarrhea Genitourinary: denies: urgency, dysuria, discharge Musculoskeletal: denies: back pain, joint swelling, arthralgia Skin: denies: rash, lesions Neurological: denies: headache, weakness, paresthesias Psychiatric: denies: anxiety, depression Hematological/Lymphatic: denies: easy bleeding, easy bruising ED Past Medical Hx - Past Medical History Previous Medical History?: Yes Hx Asthma: Yes (exercise induced) - Surgical History Past Surgical History?: No - Social History Smoking Status: Never Smoker Substance Use Type: None - Medications Home Medications: Home Medications Medication Instructions Recorded Confirmed Last Taken Type Ibuprofen [Motrin 200 MG tab] 800 mg PO Q8H PRN 04/28/17 04/28/17 Unknown His tory Ibuprofen [Motrin] 800 mg PO Q8HR PRN #15 tablet 04/28/17 Unknown Rx Ondansetron [Zofran TAB] 4 mg PO Q8HR PRN #20 tablet 04/28/17 Unknown Rx Phenylephrine/Dm/Acetaminop/GG 20 ml PO Q4HR PRN #180 liquid 04/28/17 Unknown Rx [Mucinex Lyyt-Nzj-Cutihdcdqv Lq] Amoxicillin [Trimox CAP] 500 mg PO BID #14 capsule 01/07/19 Unknown Rx Naproxen [Naprosyn] 500 mg PO BID #20 tablet 01/07/19 Unknown Rx traMADoL [Ultram 50 MG tab] 50 mg PO Q6HR PRN #12 tablet 01/07/19 Unknown Rx Dicyclomine [Bentyl] 20 mg PO Q6HR PRN #14 tablet 02/24/19 Unknown Rx Ondansetron [Zofran Odt] 4 mg PO Q8HR PRN #14 tab.rapdis 02/24/19 Unknown Rx Dicyclomine [Bentyl] 20 mg PO Q6H PRN #24 tablet 04/07/19 Unknown Rx Famotidine [Pepcid] 20 mg PO Q12H #30 tablet 04/07/19 Unknown Rx Ondansetron [Zofran ODT TAB] 8 mg PO Q8HR PRN #24 tab.rapdis 04/07/19 Unknown Rx diphenhydrAMINE [Benadryl CAP] 25 mg PO Q6HR PRN #20 capsule 04/07/19 Unknown Rx ED Physical Exam - General Limitations: No Limitations General appearance: alert, in no apparent distress - Head Head exam: Present: atraumatic, normocephalic, normal inspection - Eye Eye exam: Present: normal appearance, PERRL, EOMI Pupils: Present: normal accommodation - ENT ENT exam: Present: normal exam, normal orophraynx, mucous membranes moist, TM's normal bilaterally, normal external ear exam - Neck Neck exam: Present: normal inspection, full ROM - Respiratory Respiratory exam: Present: normal lung sounds bilaterally. Absent: respiratory distress, wheezes, rales, rhonchi, chest wall tenderness, accessory muscle use - Cardiovascular Cardiovascular Exam: Present: regular rate, normal rhythm, normal heart sounds. Absent: systolic murmur, diastolic murmur, rubs, gallop - GI/Abdominal GI/Abdominal exam: Present: soft, normal bowel sounds. Absent: tenderness, guarding, hyperactive bowel sounds, hypoactive bowel sounds - Extremities Exam Extremities exam: Present: normal inspection, full ROM, normal capillary refill - Back Exam Back exam: Present: normal inspection, full ROM. Absent: tenderness, muscle spasm, paraspinal tenderness - Neurological Exam Neurological exam: Present: alert, oriented X3, CN II-XII intact, normal gait, reflexes normal - Psychiatric Psychiatric exam: Present: normal affect, normal mood, anxious - Skin Skin exam: Present: warm, dry, intact, normal color. Absent: rash ED Course Vital Signs 04/07/19 03:11 Temperature 97.7 F Pulse Rate 90 Respiratory 18 Rate Blood Pressure 128/101 O2 Sat by Pulse 100 Oximetry ED Medical Decision Making - Lab Data Result diagrams: 04/07/19 03:21 04/07/19 03:21 - Medical Decision Making This is a nulliparous 28-year-old female who presented to the ED with persistent intractable nausea and vomiting with diarrhea and epigastric pain for the last 12 hours after consuming food from a restaurant over 12 hours ago. In the ED, patient is alert and oriented x3 and is not in distress with normal vital signs. Lab test results were reviewed and are all nonactionable including urinalysis, and that the hCG serum test is negative. Patient was treated in the ED with normal saline 1 L IV bolus, also treated initially with Zofran but also added Benadryl and Reglan and antacids. On reevaluation, patient nausea and vomiting resolved, patient passed oral fluid challenge in the ED and was discharged home on antiemetics, antacids and pain medication and was advised to observe clear liquid diet for 12 to 24 hours, while taking the medications prescribed and to follow-up with her primary care physician in 5 to 7 days for reevaluation. Patient was also advised to return to the ED immediately if symptoms get worse. Patient symptoms are likely due to a viral gastroenteritis from food poisoning. - Differential Diagnosis Viral gastroenteritis; dehydration, GERD, acute gastritis, UTI Critical care attestation.: If time is entered above; I have spent that time in minutes in the direct care of this critically ill patient, excluding procedure time. ED Disposition Clinical Impression: Viral gastroenteritis, Nausea, vomiting and diarrhea GERD (gastroesophageal reflux disease) Qualifiers: Esophagitis presence: without esophagitis Qualified Code(s): K21.9 - Gastro- esophageal reflux disease without esophagitis Disposition: - TO HOME OR SELFCARE Is pt being admited?: No Does the pt Need Aspirin: No Condition: Stable Instructions: Gastroenteritis (ED), Acute Nausea and Vomiting (ED), Abdominal Pain (ED) Additional Instructions: Your symptoms are likely due to a viral syndrome from food poisoning. Your lab test results are unremarkable. Therefore upon discharge, observe a complete liquid diet for 12 to 24 hours, take medication as prescribed, follow-up with your primary care physician in 5 to 7 days for reevaluation. Return to the ED immediately if symptoms get worse. Prescriptions: diphenhydrAMINE [Benadryl CAP] 25 mg PO Q6HR PRN #20 capsule PRN Reason: Jitteriness Dicyclomine [Bentyl] 20 mg PO Q6H PRN #24 tablet PRN Reason: Pain , Severe (7-10) Famotidine [Pepcid] 20 mg PO Q12H #30 tablet Ondansetron [Zofran ODT TAB] 8 mg PO Q8HR PRN #24 tab.rapdis PRN Reason: Nausea Referrals: [facility] [Outside] - 3-5 Days Forms: Work/School Release Form(ED) Time of Disposition: 06:50 Print Language: POLISH
[2019-04-07 07:07] LABS: Bilirubin,Urine NEG (Negative); Blood,Urine NEG (Negative); Color,Urine Straw (Yellow); Protein,Urine <15 mg/dL mg/dL (Negative); Urobilinogen,Urine < 2.0 mg/dL (<2.0)
[2019-04-07 07:46] VITALS: BP 118/96
== END 2019-04-07 07:44 | disposition home or self-care (01) ==
LOC: ED 02:50
DX: A08.4 Viral intestinal infection, unspecified (principal); K21.9 Gastro-esophageal reflux disease without esophagitis; R19.7 Diarrhea, unspecified; R11.2 Nausea with vomiting, unspecified; J45.909 Unspecified asthma, uncomplicated; Z79.899 Other long term (current) drug therapy
CPT/HCPCS: 36415; 80053; 81001; 83690; 84703; 85025; 96361; 96374; 96375; 99283; J1200; J2765; J7030; Q0162

== ENCOUNTER 2019-06-12 13:30 | Emergency (ER) | payer SELFPAY ==
--- NOTE | 2019-06-12 13:54 | Event Note ---
ED Screening Note Date of service: 06/12/19 Time: 13:48 ED Screening Note: 28 y/o female comes in for headache time last night. Admits to N/V and photophobia. No history of migraines. Recently here for the same. This initial assessment/diagnostic orders/clinical plan/treatment(s) is/are subj ect to change based on patients health status, clinical progression and re- assessment by fellow clinical providers in the ED. Further treatment and workup at subsequent clinical providers discretion. Patient/guardian urged not to elope from the ED as their condition may be serious if not clinically assessed and managed. Initial orders include:
[2019-06-12] MEDS ORDERED: diphenhydrAMINE 50 MG/ML VIAL IV ONE (15:25)
[2019-06-12] MEDS ORDERED: SODIUM CHLORIDE 0.9% 1000 ML 1,000 ML IV ONE (15:25)
[2019-06-12] MEDS ORDERED: METOCLOPRAMIDE 10 MG/2 ML INJ IV ONE (15:25)
--- NOTE | 2019-06-12 15:46 | Emergency Department Report ---
ED Headache HPI - General Chief Complaint: Headache Stated Complaint: HEAD, EAR PAIN, VOMITTING Time Seen by Provider: 06/12/19 13:48 - History of Present Illness Initial Comments: This is a 28-year-old female nontoxic, well nourished in appearance, no acute signs of distress presents to the ED with c/o of headache, photophobia, nausea vomiting x1 day. Patient describes headache as diffuse with worse in the frontal scalp with level of 8 out of 10. Patient denies thunderclap headache. Patient denies any radiation of pain. Patient denies any head trauma. Patient denies any visual changes. Patient denies worse headache. Denies any abdomiinal pain. Patient stated that darkness makes headache better and bright lights make the headache worse. Patient denies any numbness, tingling, fever, chills, nausea, vomiting, chest pain, shortness of breath, stiff neck. Patient denies facial drooping or one sided weakness. Patient denies any radiation of pain. Patient denies any allergies. Past medical history includes migraine headaches. Timing/Duration: episodic Quality: moderate Head Injury Location: frontal, other (diffuse) Recent Head Trauma: occasional headaches Associated Symptoms: nausea/vomiting. denies: confusion, fatigue, facial pain, fever/chills, flushing, loss of consciousness, nasal congestion, nasal drainage, numbness in legs/feet, rash, seizures, sinus infection, stiff neck, vision changes, weakness Allergies/Adverse Reactions: Allergies No Known Allergies Allergy (Verified 04/28/16 02:59) Home Medications: Ambulatory Orders Ibuprofen [Motrin 200 MG tab] 800 mg PO Q8H PRN 04/28/17 Ibuprofen [Motrin] 800 mg PO Q8HR PRN #15 tablet 04/28/17 Ondansetron [Zofran TAB] 4 mg PO Q8HR PRN #20 tablet 04/28/17 Phenylephrine/Dm/Acetaminop/GG [Mucinex Vaee-Krf-Esurlabwjl Lq] 20 ml PO Q4HR PRN #180 liquid 04/28/17 Amoxicillin [Trimox CAP] 500 mg PO BID #14 capsule 01/07/19 Naproxen [Naprosyn] 500 mg PO BID #20 tablet 01/07/19 traMADoL [Ultram 50 MG tab] 50 mg PO Q6HR PRN #12 tablet 01/07/19 Dicyclomine [Bentyl] 20 mg PO Q6HR PRN #14 tablet 02/24/19 Ondansetron [Zofran Odt] 4 mg PO Q8HR PRN #14 tab.rapdis 02/24/19 Dicyclomine [Bentyl] 20 mg PO Q6H PRN #24 tablet 04/07/19 Famotidine [Pepcid] 20 mg PO Q12H #30 tablet 04/07/19 Ondansetron [Zofran ODT TAB] 8 mg PO Q8HR PRN #24 tab.rapdis 04/07/19 diphenhydrAMINE [Benadryl CAP] 25 mg PO Q6HR PRN #20 capsule 04/07/19 Amoxicillin/Potassium Clav [Augmentin 875-125 Tablet] 1 each PO Q12H #20 tablet 06/02/19 Butalb/Acetamin/Caff 50-325-40 [Fioricet 50-325-40] 1 - 2 tab PO Q6HR PRN #15 tab 06/02/19 Ketorolac [Toradol] 10 mg PO Q8H PRN #20 tablet 06/02/19 Ondansetron [Zofran Odt] 4 mg PO Q6HR PRN #20 tab.rapdis 06/02/19 Butalb/Acetaminophen/Caffeine [Fioricet 50-300-40 mg CAP] 1 cap PO Q6HR PRN #12 cap 06/12/19 ED Review of Systems ROS: Stated complaint: HEAD, EAR PAIN, VOMITTING Other details as noted in HPI Constitutional: denies: chills, fever Eyes: denies: eye pain, eye discharge, vision change ENT: denies: ear pain, throat pain Respiratory: denies: cough, shortness of breath, wheezing Cardiovascular: denies: chest pain, palpitations Endocrine: no symptoms reported Gastrointestinal: nausea, vomiting. denies: abdominal pain, diarrhea Genitourinary: denies: urgency, dysuria, discharge Musculoskeletal: denies: back pain, joint swelling, arthralgia Skin: denies: rash, lesions Neurological: headache. denies: weakness, paresthesias Psychiatric: denies: anxiety, depression Hematological/Lymphatic: denies: easy bleeding, easy bruising ED Past Medical Hx - Past Medical History Hx Asthma: Yes (exercise induced) - Social History Smoking Status: Former Smoker Substance Use Type: None - Medications Home Medications: Home Medications Medication Instructions Recorded Confirmed Last Taken Type Ibuprofen [Motrin 200 MG tab] 800 mg PO Q8H PRN 04/28/17 04/28/17 Unknown History Ibuprofen [Motrin] 800 mg PO Q8HR PRN #15 tablet 04/28/17 Unknown Rx Ondansetron [Zofran TAB] 4 mg PO Q8HR PRN #20 tablet 04/28/17 Unknown Rx Phenylephrine/Dm/Acetaminop/GG 20 ml PO Q4HR PRN #180 liquid 04/28/17 Unknown Rx [Mucinex Ggjn-Wvn-Omtxnttshf Lq] Amoxicillin [Trimox CAP] 500 mg PO BID #14 capsule 01/07/19 Unknown Rx Naproxen [Naprosyn] 500 mg PO BID #20 tablet 01/07/19 Unknown Rx traMADoL [Ultram 50 MG tab] 50 mg PO Q6HR PRN #12 tablet 01/07/19 Unknown Rx Dicyclomine [Bentyl] 20 mg PO Q6HR PRN #14 tablet 02/24/19 Unknown Rx Ondansetron [Zofran Odt] 4 mg PO Q8HR PRN #14 tab.rapdis 02/24/19 Unknown Rx Dicyclomine [Bentyl] 20 mg PO Q6H PRN #24 tablet 04/07/19 Unknown Rx Famotidine [Pepcid] 20 mg PO Q12H #30 tablet 04/07/19 Unknown Rx Ondansetron [Zofran ODT TAB] 8 mg PO Q8HR PRN #24 tab.rapdis 04/07/19 Unknown Rx diphenhydrAMINE [Benadryl CAP] 25 mg PO Q6HR PRN #20 capsule 04/07/19 Unknown Rx Amoxicillin/Potassium Clav 1 each PO Q12H #20 tablet 06/02/19 Unknown Rx [Augmentin 875-125 Tablet] Butalb/Acetamin/Caff 50-325-40 1 - 2 tab PO Q6HR PRN #15 tab 06/02/19 Unknown Rx [Fioricet 50-325-40] Ketorolac [Toradol] 10 mg PO Q8H PRN #20 tablet 06/02/19 Unknown Rx Ondansetron [Zofran Odt] 4 mg PO Q6HR PRN #20 tab.rapdis 06/02/19 Unknown Rx Butalb/Acetaminophen/Caffeine 1 cap PO Q6HR PRN #12 cap 06/12/19 Unknown Rx [Fioricet 50-300-40 mg CAP] ED Physical Exam - General Limitations: No Limitations General appearance: alert, in no apparent distress - Head Head exam: Present: atraumatic, normocephalic - Eye Eye exam: Present: normal appearance, PERRL, EOMI - Neck Neck exam: Present: normal inspection, full ROM. Absent: tenderness, meningismus, lymphadenopathy - GI/Abdominal GI/Abdominal exam: Present: soft, normal bowel sounds. Absent: distended, tenderness, guarding, rebound, rigid, diminished bowel sounds - Extremities Exam Extremities exam: Present: normal inspection, full ROM - Back Exam Back exam: Present: normal inspection, full ROM. Absent: tenderness, CVA tenderness (R), CVA tenderness (L), muscle spasm, paraspinal tenderness, vertebral tenderness, rash noted - Neurological Exam Neurological exam: Present: alert, oriented X3, normal gait - Expanded Neurological Exam Expanded Patient oriented to: Present: person, place, time Cranial nerves: EOM's Intact: Normal, Facial Sensation: Normal Cerebellar function: Finger to Nose: Normal Upper motor neuron: Pronator Drift: Normal, Sensory Extinction: Normal Motor strength exam: RUE: 5, LUE: 5, RLE: 5, LLE: 5 Best Eye Response ([place]): (4) open spontaneously Best Motor Response ([place]): (6) obeys commands Best Verbal Response ([place]): (5) oriented [place] Total: 15 - Psychiatric Psychiatric exam: Present: normal affect, normal mood - Skin Skin exam: Present: warm, dry, intact, normal color. Absent: rash ED Course Vital Signs 06/12/19 15:48 Temperature 98.9 F Pulse Rate 88 Respiratory 16 Rate Blood Pressure 141/88 O2 Sat by Pulse 99 Oximetry - Reevaluation(s) Reevaluation #1: 06/12/19 15:45 Patient is speaking in full sentences with no signs of distress noted. ED Medical Decision Making - Lab Data Result diagrams: 06/12/19 15:35 06/12/19 15:35 - Medical Decision Making This is a 28-year-old female that presents with headache. Patient is stable and was examined by me. Patient is neurologically stable. There is no stiff neck or neck pain. Vital signs are stable. Patient is afebrile. Labs has been obtained unremarkable. CT scan of head has been obtained and dictated by radiologist unremarkable. Patient is notified of the results with no questions noted by the patient. Patient received Benadryl, Reglan, and 1 L of normal saline which the patient stated that headache has subsided and resolved. Patient was instructed not to operate any machinery after discharged due to drowsiness of Benadryl. Patient stated that a family member will drive patient home. Patient is discharged with Fioricet. Patient was referred to Follow-up with a primary care/neurologist doctor in 3-5 days or if symptoms worsen and c ontinue return to emergency room as soon as possible. At time of discharge, the patient does not seem toxic or ill in appearance. No acute signs of distress noted. Patient agrees to discharge treatment plan of care. No further questions noted by the patient. Critical care attestation.: If time is entered above; I have spent that time in minutes in the direct care of this critically ill patient, excluding procedure time. ED Disposition Clinical Impression: Migraine headache Qualifiers: Migraine type: unspecified Status migrainosus presence: without status migrainosus Intractability: not intractable Qualified Code(s): G43.909 - Migraine, unspecified, not intractable, without status migrainosus Disposition: DC-01 TO HOME OR SELFCARE Is pt being admited?: No Does the pt Need Aspirin: No Condition: Stable Instructions: Acute Headache (ED), Butalbital/Aspirin/Caffeine (By mouth) Additional Instructions: Follow-up with a primary care/neurologist doctor in 3-5 days or if symptoms worsen and continue return to emergency room as soon as possible. Prescriptions: Butalb/Acetaminophen/Caffeine [Fioricet 50-300-40 mg CAP] 1 cap PO Q6HR PRN #12 cap PRN Reason: Headache Referrals: PRIMARY MD MARTY [Primary Care Provider] - 3-5 Days MAT GUPTA MD [Staff Physician] - 3-5 Days [facility] [Provider Group] - 3-5 Days Forms: Work/School Release Form(ED)
[2019-06-12 15:56] LABS: Eosinophils % (Auto) 0.4 % (0.0-4.3); Hematocrit 40.1 % (30.3-42.9); Hemoglobin 13.2 gm/dl (10.1-14.3); Lymphocytes # (Auto) 1.1 K/mm3 (1.2-5.4); Lymphocytes % (Auto) 23.7 % (13.4-35.0); Mean Corpuscular HGB Conc 33 % (30-34); Mean Corpuscular Volume 90 fl (79-97); Monocytes # (Auto) 0.7 K/mm3 (0.0-0.8); Monocytes % (Auto) 13.9 % (0.0-7.3); Platelet Count 289 K/mm3 (140-440); Red Blood Count 4.47 M/mm3 (3.65-5.03)
[2019-06-12 16:12] LABS: Alanine Aminotransferase 11 units/L (7-56); Albumin 4.1 g/dL (3.9-5); BUN/Creatinine Ratio 11; Blood Urea Nitrogen 11 mg/dL (7-17); Calcium 9.3 mg/dL (8.4-10.2); Hemolysis Index 10
--- NOTE | 2019-06-12 17:06 | Cat Scan Report ---
CT head/brain wo con INDICATION: Headache. TECHNIQUE: Routine CT head without contrast. All CT scans at this location are performed using CT dos e reduction for ALARA by means of automated exposure control. COMPARISON: None. FINDINGS: BRAIN / INTRACRANIAL CONTENTS: No acute hemorrhage, mass effect, midline shift, or hydrocephalus. No appreciable acute large territorial or lacunar infarct. No chronic infarct or focal atrophy. Normal b rain volume and ventricular/sulcal size for age. ORBITS: No significant abnormality of visualized orbits. SINUSES / MASTOIDS: No significant abnormality of visualized sinuses and mastoid air cells. ADDITIONAL FINDINGS: None. IMPRESSION: 1. No acute intracranial abnormality. Signer Name: Kashmir Mazariegos MD Signed: 06/12/2019 5:01 PM Workstation Name: [id number]
[2019-06-12 18:24] VITALS: BP 136/84
== END 2019-06-12 18:23 | disposition home or self-care (01) ==
LOC: ED 13:30
DX: G43.909 Migraine, unspecified, not intractable, without status migrainosus (principal); J45.909 Unspecified asthma, uncomplicated; Z79.899 Other long term (current) drug therapy
CPT/HCPCS: 36415; 70450; 80053; 84703; 85025; 96361; 96374; 96375; 99284; J1200; J2765; J7030

== ENCOUNTER 2019-06-28 23:22 | Emergency (ER) | payer SELFPAY ==
[2019-06-29] MEDS ORDERED: FAMOTIDINE 20 MG/2 ML INJ IV ONE (01:55)
[2019-06-29] MEDS ORDERED: SODIUM CHLORIDE 0.9% 1000 ML 1,000 ML IV ONE (01:56)
[2019-06-29] MEDS ORDERED: KETOROLAC 30 MG/1 ML INJ IV ONE (01:59)
[2019-06-29] MEDS ORDERED: ONDANSETRON 4 MG/2 ML INJ IV NR (02:00)
[2019-06-29 02:35] LABS: Bilirubin,Urine NEG (Negative); Blood,Urine NEG (Negative); Color,Urine Yellow (Yellow); Mucus,Urine 1+ /HPF; Protein,Urine <15 mg/dL mg/dL (Negative); Urobilinogen,Urine < 2.0 mg/dL (<2.0)
[2019-06-29 02:54] LABS: Basophils # (Auto) 0.1 K/mm3 (0.0-0.1); Basophils % (Auto) 1.1 % (0.0-1.8); Eosinophils % (Auto) 0.4 % (0.0-4.3); Hematocrit 37.5 % (30.3-42.9); Hemoglobin 12.3 gm/dl (10.1-14.3); Lymphocytes # (Auto) 0.9 K/mm3 (1.2-5.4); Mean Corpuscular HGB Conc 33 % (30-34); Mean Corpuscular Volume 90 fl (79-97); Monocytes # (Auto) 0.4 K/mm3 (0.0-0.8); Monocytes % (Auto) 8.3 % (0.0-7.3); Platelet Count 251 K/mm3 (140-440); Red Blood Count 4.16 M/mm3 (3.65-5.03)
[2019-06-29 03:19] LABS: Alanine Aminotransferase 18 units/L (7-56); BUN/Creatinine Ratio 14; Blood Urea Nitrogen 11 mg/dL (7-17); Calcium 9.2 mg/dL (8.4-10.2); Hemolysis Index 2
--- NOTE | 2019-06-29 03:42 | Emergency Department Report ---
ED N/V/D HPI - General Chief complaint: Headache Stated complaint: NAUSEA/HEADACHE Source: patient Mode of arrival: Ambulatory Limitations: No Limitations - History of Present Illness Initial comments: Patient is a 28-year-old -[place] female with a history of exercise in duced asthma, anxiety and depression who presented to the ED with complaint of acute onset persistent intractable nausea and vomiting, persistent severe headache with lightheadedness for the last 3 hours. Patient states that she has not been able to keep anything down including water. Patient denies dizziness, syncope, chest pain, fever, chills, cough, sore throat, diarrhea, dysuria, urinary frequency and urgency, shortness of breath, change in vision, abdominal pain, or hematemesis and hematochezia. MD complaint: nausea, vomiting, other (headache, lightheadedness) -: Sudden, hour(s) (3) Description of Vomiting: food contents, watery Description of Diarrhea: other (None) Associated Abdominal Pain: No Location: diffuse Radiation: none Severity: severe Pain Scale: 6 Quality: dull Consistency: intermittent Improves with: none Worsens with: none Context: possible food poisoning Associated Symptoms: denies other symptoms, headaches, loss of appetite, nausea/vomiting. denies: myalgias, chest pain, cough, diaphoresis, fever/chills, malaise, rash, dysuria, shortness of breath, syncope - Related Data Home Medications Medication Instructions Recorded Confirmed Last Taken Ibuprofen [Motrin 200 MG tab] 800 mg PO Q8H PRN 04/28/17 04/28/17 Unknown Previous Rx's Medication Instructions Recorded Last Taken Type Ibuprofen [Motrin] 800 mg PO Q8HR PRN #15 tablet 04/28/17 Unknown Rx Ondansetron [Zofran TAB] 4 mg PO Q8HR PRN #20 tablet 04/28/17 Unknown Rx Phenylephrine/Dm/Acetaminop/GG 20 ml PO Q4HR PRN #180 liquid 04/28/17 Unknown Rx [Mucinex Ijgh-Xzp-Rhzdukrbhf Lq] Amoxicillin [Trimox CAP] 500 mg PO BID #14 capsule 01/07/19 Unknown Rx Naproxen [Naprosyn] 500 mg PO BID #20 tablet 01/07/19 Unknown Rx traMADoL [Ultram 50 MG tab] 50 mg PO Q6HR PRN #12 tablet 01/07/19 Unknown Rx Dicyclomine [Bentyl] 20 mg PO Q6HR PRN #14 tablet 02/24/19 Unknown Rx Ondansetron [Zofran Odt] 4 mg PO Q8HR PRN #14 tab.rapdis 02/24/19 Unknown Rx Dicyclomine [Bentyl] 20 mg PO Q6H PRN #24 tablet 04/07/19 Unknown Rx Famotidine [Pepcid] 20 mg PO Q12H #30 tablet 04/07/19 Unknown Rx Ondansetron [Zofran ODT TAB] 8 mg PO Q8HR PRN #24 tab.rapdis 04/07/19 Unknown Rx diphenhydrAMINE [Benadryl CAP] 25 mg PO Q6HR PRN #20 capsule 04/07/19 Unknown Rx Amoxicillin/Potassium Clav 1 each PO Q12H #20 tablet 06/02/19 Unknown Rx [Augmentin 875-125 Tablet] Butalb/Acetamin/Caff 50-325-40 1 - 2 tab PO Q6HR PRN #15 tab 06/02/19 Unknown Rx [Fioricet 50-325-40] Ketorolac [Toradol] 10 mg PO Q8H PRN #20 tablet 06/02/19 Unknown Rx Ondansetron [Zofran Odt] 4 mg PO Q6HR PRN #20 tab.rapdis 06/02/19 Unknown Rx Butalb/Acetaminophen/Caffeine 1 cap PO Q6HR PRN #12 cap 06/12/19 Unknown Rx [Fioricet 50-300-40 mg CAP] Butalb/Acetamin/Caff 50-325-40 1 - 2 tab PO Q6HR PRN #12 tab 06/29/19 Unknown Rx [Fioricet 50-325-40] Famotidine [Pepcid] 20 mg PO Q12H #60 tablet 06/29/19 Unknown Rx Ondansetron [Zofran Odt] 4 mg PO Q6HR PRN #20 tab.rapdis 06/29/19 Unknown Rx Allergies Allergy/AdvReac Type Severity Reaction Status Date / Time metoclopramide [From Reglan] AdvReac Unknown Verified 06/29/19 02:14 ED Review of Systems ROS: Stated complaint: NAUSEA/HEADACHE Other details as noted in HPI Constitutional: denies: chills, fever Eyes: denies: eye pain, eye discharge, vision change ENT: denies: ear pain, throat pain Respiratory: denies: cough, shortness of breath, wheezing Cardiovascular: denies: chest pain, palpitations Endocrine: no symptoms reported Gastrointestinal: nausea, vomiting. denies: abdominal pain, diarrhea Genitourinary: denies: urgency, dysuria, discharge Musculoskeletal: denies: back pain, joint swelling, arthralgia Skin: denies: rash, lesions Neurological: headache, other (Lightheadedness). denies: weakness, paresthesias Psychiatric: denies: anxiety, depression Hematological/Lymphatic: denies: easy bleeding, easy bruising ED Past Medical Hx - Past Medical History Hx Psychiatric Treatment: Yes (DEPRESSION) Hx Asthma: Yes (exercise induced) - Surgical History Past Surgical History?: No - Social History Smoking Status: Never Smoker Substance Use Type: None - Medications Home Medications: Home Medications Medication Instructions Recorded Confirmed Last Taken Type Ibuprofen [Motrin 200 MG tab] 800 mg PO Q8H PRN 04/28/17 04/28/17 Unknown Histo ry Ibuprofen [Motrin] 800 mg PO Q8HR PRN #15 tablet 04/28/17 Unknown Rx Ondansetron [Zofran TAB] 4 mg PO Q8HR PRN #20 tablet 04/28/17 Unknown Rx Phenylephrine/Dm/Acetaminop/GG 20 ml PO Q4HR PRN #180 liquid 04/28/17 Unknown Rx [Mucinex Zlya-Xgn-Poenejsuxe Lq] Amoxicillin [Trimox CAP] 500 mg PO BID #14 capsule 01/07/19 Unknown Rx Naproxen [Naprosyn] 500 mg PO BID #20 tablet 01/07/19 Unknown Rx traMADoL [Ultram 50 MG tab] 50 mg PO Q6HR PRN #12 tablet 01/07/19 Unknown Rx Dicyclomine [Bentyl] 20 mg PO Q6HR PRN #14 tablet 02/24/19 Unknown Rx Ondansetron [Zofran Odt] 4 mg PO Q8HR PRN #14 tab.rapdis 02/24/19 Unknown Rx Dicyclomine [Bentyl] 20 mg PO Q6H PRN #24 tablet 04/07/19 Unknown Rx Famotidine [Pepcid] 20 mg PO Q12H #30 tablet 04/07/19 Unknown Rx Ondansetron [Zofran ODT TAB] 8 mg PO Q8HR PRN #24 tab.rapdis 04/07/19 Unknown Rx diphenhydrAMINE [Benadryl CAP] 25 mg PO Q6HR PRN #20 capsule 04/07/19 Unknown Rx Amoxicillin/Potassium Clav 1 each PO Q12H #20 tablet 06/02/19 Unknown Rx [Augmentin 875-125 Tablet] Butalb/Acetamin/Caff 50-325-40 1 - 2 tab PO Q6HR PRN #15 tab 06/02/19 Unknown Rx [Fioricet 50-325-40] Ketorolac [Toradol] 10 mg PO Q8H PRN #20 tablet 06/02/19 Unknown Rx Ondansetron [Zofran Odt] 4 mg PO Q6HR PRN #20 tab.rapdis 06/02/19 Unknown Rx Butalb/Acetaminophen/Caffeine 1 cap PO Q6HR PRN #12 cap 06/12/19 Unknown Rx [Fioricet 50-300-40 mg CAP] Butalb/Acetamin/Caff 50-325-40 1 - 2 tab PO Q6HR PRN #12 tab 06/29/19 Unknown Rx [Fioricet 50-325-40] Famotidine [Pepcid] 20 mg PO Q12H #60 tablet 06/29/19 Unknown Rx Ondansetron [Zofran Odt] 4 mg PO Q6HR PRN #20 tab.rapdis 06/29/19 Unknown Rx ED Physical Exam - General Limitations: No Limitations General appearance: alert, in no apparent distress - Head Head exam: Present: atraumatic, normocephalic, normal inspection - Eye Eye exam: Present: normal appearance, PERRL, EOMI Pupils: Present: normal accommodation - ENT ENT exam: Present: normal exam, normal orophraynx, mucous membranes moist, TM's normal bilaterally, normal external ear exam - Neck Neck exam: Present: normal inspection, full ROM - Respiratory Respiratory exam: Present: normal lung sounds bilaterally. Absent: respiratory distress, wheezes, rales, rhonchi, chest wall tenderness, accessory muscle use, decreased breath sounds, prolonged expiratory - Cardiovascular Cardiovascular Exam: Present: regular rate, normal rhythm, normal heart sounds. Absent: systolic murmur, diastolic murmur, rubs, gallop - GI/Abdominal GI/Abdominal exam: Present: soft, normal bowel sounds. Absent: tenderness, guarding, rebound, hyperactive bowel sounds, organomegaly - Extremities Exam Extremities exam: Present: normal inspection, full ROM, normal capillary refill - Back Exam Back exam: Present: normal inspection, full ROM. Absent: tenderness, CVA tenderness (R), muscle spasm, paraspinal tenderness - Neurological Exam Neurological exam: Present: alert, oriented X3, CN II-XII intact, normal gait, reflexes normal - Psychiatric Psychiatric exam: Present: normal affect, normal mood, anxious - Skin Skin exam: Present: warm, dry, intact, normal color. Absent: rash ED Course Vital Signs 06/28/19 23:55 Temperature 98.1 F Pulse Rate 95 H Respiratory 18 Rate Blood Pressure 136/75 O2 Sat by Pulse 98 Oximetry ED Medical Decision Making - Lab Data Result diagrams: 06/29/19 02:16 06/29/19 02:16 - Medical Decision Making This is a 28-year-old -[place] female with a history of exercise induced asthma, anxiety and depression who presented to the ED with complaint of acute onset persistent intractable nausea and vomiting, persistent severe headache with lightheadedness for the last 3 hours. Patient states that she has not been able to keep anything down including water. In the ED, patient is alert and oriented x3 and is not in distress but anxious. Patient was treated in the ED for nausea and vomiting, also given pain medication for headache and received normal saline 1 L IV bolus. Lab test results were reviewed and are all nonactionable. On reevaluation, patient symptoms resolved, patient has not had any symptoms of nausea and vomiting or headache since being treated for the same. Patient was discharged home on medications and advised to maintain a clear liquid diet for 12 to 24 hrs, and to follow-up with her primary care physician in 5 to 7 days for reevaluation or return to the ED immediately if symptoms get worse. - Differential Diagnosis Viral gastroenteritis; tension headache; dehydration; GERD; UTI Critical care attestation.: If time is entered above; I have spent that time in minutes in the direct care of this critically ill patient, excluding procedure time. ED Disposition Clinical Impression: Nausea and vomiting in adult patient, Viral gastroenteritis Tension type headache Qualifiers: Headache chronicity pattern: acute headache Intractability: not intractable Qualified Code(s): G44.209 - Tension-type headache, unspecified, not intractable Disposition: DC-01 TO HOME OR SELFCARE Is pt being admited?: No Does the pt Need Aspirin: No Condition: Stable Instructions: Acute Nausea and Vomiting (ED), Gastroenteritis (ED), Acute Headache (ED) Additional Instructions: Maintain a clear liquid diet for 12 to 24 hrs., drink plenty of fluids, take medication as needed and follow-up with your primary care physician in 5 to 7 da ys for reevaluation. Return to the ED immediately if symptoms get worse. Prescriptions: Butalb/Acetamin/Caff 50-325-40 [Fioricet 50-325-40] 1 - 2 tab PO Q6HR PRN #12 tab PRN Reason: Headache Famotidine [Pepcid] 20 mg PO Q12H #60 tablet Ondansetron [Zofran Odt] 4 mg PO Q6HR PRN #20 tab.rapdis PRN Reason: Nausea Referrals: [facility] [Provider Group] - 3-5 Days Time of Disposition: 03:41 Print Language: ALBAN[place]
[2019-06-29 04:18] VITALS: BP 113/80
== END 2019-06-29 04:17 | disposition home or self-care (01) ==
LOC: ED 23:22
DX: G44.209 Tension-type headache, unspecified, not intractable (principal); K21.9 Gastro-esophageal reflux disease without esophagitis; J45.909 Unspecified asthma, uncomplicated; Z79.899 Other long term (current) drug therapy; Z88.8 Allergy status to other drugs, medicaments and biological substances
CPT/HCPCS: 36415; 80053; 81001; 84703; 85025; 96361; 96374; 96375; 99283; J1885; J2405; J7030

== ENCOUNTER 2019-11-02 00:42 | Emergency (ER) | payer SELFPAY ==
[2019-11-02 02:52] VITALS: BP 105/73
[2019-11-02] MEDS ORDERED: AMOXICILLIN/K CLAV 875/125MG TAB PO ONE (05:20)
[2019-11-02] MEDS ORDERED: IBUPROFEN 600 MG TAB PO ONE (05:20)
[2019-11-02] MEDS ORDERED: ONDANSETRON 4 MG ODT TAB PO ONE (05:20)
[2019-11-02] MEDS ORDERED: LIDOCAINE VISCOUS 2% 15 ML ORAL LIQD PO ONE (05:21)
[2019-11-02] MEDS ORDERED: BUTALB/ACETAMINOPHEN/CAFFEINE TAB PO ONE (05:21)
--- NOTE | 2019-11-02 05:34 | Emergency Department Report ---
ED General Adult HPI - General Chief complaint: Dental/Oral Stated complaint: MOUTH PAIN/SWELLING/HEADACH Source: patient Mode of arrival: Ambulatory Limitations: No Limitations - History of Present Illness Initial comments: Patient is a 28-year-old -[place] female with a history of exercise- induced asthma, migraine headaches and anxiety and depression who [facility] with complaint of acute onset persistent severe painful ulcerated lesions on her inner lower lip and her mouth for the last 2 days. Patient states that she has not been able to eat anything because of worsening pain. Patient also complains of nausea and headache with lack of appetite. Patient denies sore throat, fever, chills, cough, dizziness, chest pain, shortness of breath, nasal and sinus congestion, neck pain, abdominal pain, diarrhea, dysuria, urinary frequency and urgency or vaginal discharge. MD Complaint: Painful oral ulcers -: Sudden, days(s) (2) Location: mouth Radiation: non-radiation Severity scale (0 -10): 7 Quality: aching Consistency: constant Improves with: none Worsens with: eating Associated Symptoms: denies other symptoms, headaches, loss of appetite, nausea/vomiting. denies: confusion, chest pain, cough, diaphoresis, fever/chills, malaise, rash, seizure, shortness of breath, syncope, weakness Treatments Prior to Arrival: NSAID - Related Data Home Medications Medication Instructions Recorded Confirmed Last Taken Ibuprofen [Motrin 200 MG tab] 800 mg PO Q8H PRN 04/28/17 04/28/17 Unknown Previous Rx's Medication Instructions Recorded Last Taken Type Ibuprofen [Motrin] 800 mg PO Q8HR PRN #15 tablet 04/28/17 Unknown Rx Ondansetron [Zofran TAB] 4 mg PO Q8HR PRN #20 tablet 04/28/17 Unknown Rx Phenylephrine/Dm/Acetaminop/GG 20 ml PO Q4HR PRN #180 liquid 04/28/17 Unknown Rx [Mucinex Huyy-Fqu-Khemrbknpk Lq] Amoxicillin [Trimox CAP] 500 mg PO BID #14 capsule 01/07/19 Unknown Rx Naproxen [Naprosyn] 500 mg PO BID #20 tablet 01/07/19 Unknown Rx traMADoL [Ultram 50 MG tab] 50 mg PO Q6HR PRN #12 tablet 01/07/19 Unknown Rx Dicyclomine [Bentyl] 20 mg PO Q6HR PRN #14 tablet 02/24/19 Unknown Rx Ondansetron [Zofran Odt] 4 mg PO Q8HR PRN #14 tab.rapdis 02/24/19 Unknown Rx Dicyclomine [Bentyl] 20 mg PO Q6H PRN #24 tablet 04/07/19 Unknown Rx Famotidine [Pepcid] 20 mg PO Q12H #30 tablet 04/07/19 Unknown Rx Ondansetron [Zofran ODT TAB] 8 mg PO Q8HR PRN #24 tab.rapdis 04/07/19 Unknown Rx diphenhydrAMINE [Benadryl CAP] 25 mg PO Q6HR PRN #20 capsule 04/07/19 Unknown Rx Amoxicillin/Potassium Clav 1 each PO Q12H #20 tablet 06/02/19 Unknown Rx [Augmentin 875-125 Tablet] Butalb/Acetamin/Caff 50-325-40 1 - 2 tab PO Q6HR PRN #15 tab 06/02/19 Unknown Rx [Fioricet 50-325-40] Butalb/Acetaminophen/Caffeine 1 cap PO Q6HR PRN #12 cap 06/12/19 Unknown Rx [Fioricet 50-300-40 mg CAP] Famotidine [Pepcid] 20 mg PO Q12H #60 tablet 06/29/19 Unknown Rx Ondansetron [Zofran Odt] 4 mg PO Q6HR PRN #20 tab.rapdis 06/29/19 Unknown Rx Butalb/Acetamin/Caff 50-325-40 1 - 2 tab PO Q6HR PRN #15 tab 09/28/19 Unknown Rx [Fioricet 50-325-40] Ketorolac [Toradol] 10 mg PO Q8H PRN #20 tablet 09/28/19 Unknown Rx Ondansetron [Zofran ODT TAB] 4 mg PO Q6HR PRN #20 tab.rapdis 09/28/19 Unknown Rx Acetaminophen/Codeine [Tylenol 1 tab PO Q6H PRN #10 tab 11/02/19 Unknown Rx /Codeine # 3 tab] Acyclovir 400 mg PO Q8H #30 tablet 11/02/19 Unknown Rx Amoxicillin [Trimox CAP] 500 mg PO Q8H #30 capsule 11/02/19 Unknown Rx Ibuprofen [Motrin] 800 mg PO Q8HR PRN #30 tablet 11/02/19 Unknown Rx Lidocaine Viscous 2% 10 ml PO Q4H PRN #120 ml 11/02/19 Unknown Rx Ondansetron [Zofran Odt] 4 mg PO Q6HR PRN #15 tab.rapdis 11/02/19 Unknown Rx Allergies Allergy/AdvReac Type Severity Reaction Status Date / Time metoclopramide [From Reglan] AdvReac Unknown Verified 06/29/19 02:14 ED Review of Systems ROS: Stated complaint: MOUTH PAIN/SWELLING/HEADACH Other details as noted in HPI Constitutional: denies: chills, fever Eyes: denies: eye pain, eye discharge, vision change ENT: other (Painful ulcerated lesions in the inner lower lip and mouth). denies: ear pain, throat pain Respiratory: denies: cough, shortness of breath, wheezing Cardiovascular: denies: chest pain, palpitations Endocrine: no symptoms reported Gastrointestinal: nausea. denies: abdominal pain, diarrhea Genitourinary: denies: urgency, dysuria, discharge Musculoskeletal: denies: back pain, joint swelling, arthralgia Skin: denies: rash, lesions Neurological: headache. denies: weakness, paresthesias Psychiatric: denies: anxiety, depression Hematological/Lymphatic: denies: easy bleeding, easy bruising ED Past Medical Hx - Past Medical History Previous Medical History?: Yes Hx Headaches / Migraines: Yes Hx Psychiatric Treatment: Yes (DEPRESSION) Hx Asthma: Yes (exercise induced) - Surgical History Past Surgical History?: No - Social History Smoking Status: Never Smoker Substance Use Type: None - Medications Home Medications: Home Medications Medication Instructions Recorded Confirmed Last Taken Type Ibuprofen [Motrin 200 MG tab] 800 mg PO Q8H PRN 04/28/17 04/28/17 Unknown History Ibuprofen [Motrin] 800 mg PO Q8HR PRN #15 tablet 04/28/17 Unknown Rx Ondansetron [Zofran TAB] 4 mg PO Q8HR PRN #20 tablet 04/28/17 Unknown Rx Phenylephrine/Dm/Acetaminop/GG 20 ml PO Q4HR PRN #180 liquid 04/28/17 Unknown Rx [Mucinex Kogn-Jtk-Amfltoizev Lq] Amoxicillin [Trimox CAP] 500 mg PO BID #14 capsule 01/07/19 Unknown Rx Naproxen [Naprosyn] 500 mg PO BID #20 tablet 01/07/19 Unknown Rx traMADoL [Ultram 50 MG tab] 50 mg PO Q6HR PRN #12 tablet 01/07/19 Unknown Rx Dicyclomine [Bentyl] 20 mg PO Q6HR PRN #14 tablet 02/24/19 Unknown Rx Ondansetron [Zofran Odt] 4 mg PO Q8HR PRN #14 tab.rapdis 02/24/19 Unknown Rx Dicyclomine [Bentyl] 20 mg PO Q6H PRN #24 tablet 04/07/19 Unknown Rx Famotidine [Pepcid] 20 mg PO Q12H #30 tablet 04/07/19 Unknown Rx Ondansetron [Zofran ODT TAB] 8 mg PO Q8HR PRN #24 tab.rapdis 04/07/19 Unknown Rx diphenhydrAMINE [Benadryl CAP] 25 mg PO Q6HR PRN #20 capsule 04/07/19 Unknown Rx Amoxicillin/Potassium Clav 1 each PO Q12H #20 tablet 06/02/19 Unknown Rx [Augmentin 875-125 Tablet] Butalb/Acetamin/Caff 50-325-40 1 - 2 tab PO Q6HR PRN #15 tab 06/02/19 Unknown Rx [Fioricet 50-325-40] Butalb/Acetaminophen/Caffeine 1 cap PO Q6HR PRN #12 cap 06/12/19 Unknown Rx [Fioricet 50-300-40 mg CAP] Famotidine [Pepcid] 20 mg PO Q12H #60 tablet 06/29/19 Unknown Rx Ondansetron [Zofran Odt] 4 mg PO Q6HR PRN #20 tab.rapdis 06/29/19 Unknown Rx Butalb/Acetamin/Caff 50-325-40 1 - 2 tab PO Q6HR PRN #15 tab 09/28/19 Unknown Rx [Fioricet 50-325-40] Ketorolac [Toradol] 10 mg PO Q8H PRN #20 tablet 09/28/19 Unknown Rx Ondansetron [Zofran ODT TAB] 4 mg PO Q6HR PRN #20 tab.rapdis 09/28/19 Unknown Rx Acetaminophen/Codeine [Tylenol 1 tab PO Q6H PRN #10 tab 11/02/19 Unknown Rx /Codeine # 3 tab] Acyclovir 400 mg PO Q8H #30 tablet 11/02/19 Unknown Rx Amoxicillin [Trimox CAP] 500 mg PO Q8H #30 capsule 11/02/19 Unknown Rx Ibuprofen [Motrin] 800 mg PO Q8HR PRN #30 tablet 11/02/19 Unknown Rx Lidocaine Viscous 2% 10 ml PO Q4H PRN #120 ml 11/02/19 Unknown Rx Ondansetron [Zofran Odt] 4 mg PO Q6HR PRN #15 tab.rapdis 11/02/19 Unknown Rx ED Physical Exam - General Limitations: No Limitations General appearance: alert, in no apparent distress - Head Head exam: Present: atraumatic, normocephalic, normal inspection - Eye Eye exam: Present: normal appearance, PERRL, EOMI Pupils: Present: normal accommodation - ENT ENT exam: Present: mucous membranes moist, TM's normal bilaterally, normal external ear exam, other (Multiple ulcerated tender lesions in the inner lower lips and gum) - Neck Neck exam: Present: normal inspection, full ROM. Absent: tenderness, lymphadenopathy - Respiratory Respiratory exam: Present: normal lung sounds bilaterally. Absent: respiratory distress, wheezes, rales, rhonchi, chest wall tenderness, accessory muscle use, prolonged expiratory - Cardiovascular Cardiovascular Exam: Present: regular rate, normal rhythm, normal heart sounds. Absent: systolic murmur, diastolic murmur, rubs, gallop - GI/Abdominal GI/Abdominal exam: Present: soft, normal bowel sounds. Absent: tenderness, guarding, hyperactive bowel sounds, hypoactive bowel sounds - Extremities Exam Extremities exam: Present: normal inspection, full ROM, normal capillary refill - Back Exam Back exam: Present: normal inspection, full ROM. Absent: tenderness, CVA tenderness (R), CVA tenderness (L), muscle spasm, paraspinal tenderness, vertebral tenderness - Neurological Exam Neurological exam: Present: alert, oriented X3, CN II-XII intact, normal gait, reflexes normal - Psychiatric Psychiatric exam: Present: normal affect, normal mood, anxious - Skin Skin exam: Present: warm, dry, intact, normal color. Absent: rash ED Course Vital Signs 11/02/19 02:51 Temperature 98.2 F Pulse Rate 96 H Respiratory 16 Rate Blood Pressure 105/73 O2 Sat by Pulse 100 Oximetry ED Medical Decision Making - Medical Decision Making This is a 28-year-old -[place] female with a history of exercise-induced asthma, migraine headaches and anxiety and depression who presents to the ED with complaint of acute onset persistent severe painful ulcerated lesions on her inner lower lip and her mouth for the last 2 days. Patient states that she has not been able to eat anything because of worsening pain. Patient also complains of nausea and headache with lack of appetite. In the ED, patient is alert and oriented x3 and is not in distress but appears to be in pain and is anxious. Patient was treated for pain in the ED and on reevaluation, patient's pain is well controlled medication and patient was discharged home on medications for pain as well as antivirals and antiemetics. Patient was advised to follow-up with her primary care physician in 7 to 10 days for reevaluation or return to the ED immediately if symptoms get worse. - Differential Diagnosis Herpes simplex virus type I; gingivitis, dental caries Critical care attestation.: If time is entered above; I have spent that time in minutes in the direct care of this critically ill patient, excluding procedure time. ED Disposition Clinical Impression: Herpes stomatitis, Acute gingivitis, Dental caries Disposition: [id number] TO HOME OR SELFCARE Is pt being admited?: No Does the pt Need Aspirin: No Condition: Stable Instructions: Viral Exanthem (ED), Oral Herpes Simplex Virus Infections (ED), Gingivitis (ED), Dental Caries (ED) Additional Instructions: Take medication with food, drink plenty of fluids and follow-up with your primary care physician in 5 to 7 days for reevaluation. Return to the ED immediately if symptoms get worse. Prescriptions: Acyclovir 400 mg PO Q8H #30 tablet Lidocaine Viscous 2% 10 ml PO Q4H PRN #120 ml PRN Reason: Mouth Pain Ibuprofen [Motrin] 800 mg PO Q8HR PRN #30 tablet PRN Reason: Pain , Severe (7-10) Amoxicillin [Trimox CAP] 500 mg PO Q8H #30 capsule Acetaminophen/Codeine [Tylenol /Codeine # 3 tab] 1 tab PO Q6H PRN #10 tab PRN Reason: Pain , Severe (7-10) Ondansetron [Zofran Odt] 4 mg PO Q6HR PRN #15 tab.rapdis PRN Reason: Nausea Referrals: [facility] [Outside] - 3-5 Days [facility] [Outside] - 3-5 Days Time of Disposition: 05:36 Print Language: UKRAINIAN
== END 2019-11-02 06:10 | disposition home or self-care (01) ==
LOC: ED 00:42
DX: B00.2 Herpesviral gingivostomatitis and pharyngotonsillitis (principal); K02.9 Dental caries, unspecified; I10 Essential (primary) hypertension; F32.9 Major depressive disorder, single episode, unspecified; J45.909 Unspecified asthma, uncomplicated; Z79.1 Long term (current) use of non-steroidal anti-inflammatories (NSAID); Z79.2 Long term (current) use of antibiotics; Z79.899 Other long term (current) drug therapy
CPT/HCPCS: 99282; Q0162

== ENCOUNTER 2019-11-30 02:11 | Emergency (ER) | payer SELFPAY ==
[2019-11-30 03:22] VITALS: BP 137/83
[2019-11-30 03:48] LABS: Basophils # (Auto) 0.1 K/mm3 (0.0-0.1); Basophils % (Auto) 1.5 % (0.0-1.8); Eosinophils # (Auto) 0.1 K/mm3 (0.0-0.4); Hematocrit 38.3 % (30.3-42.9); Hemoglobin 12.8 gm/dl (10.1-14.3); Lymphocytes # (Auto) 1.1 K/mm3 (1.2-5.4); Lymphocytes % (Auto) 19.5 % (13.4-35.0); Mean Corpuscular HGB Conc 33 % (30-34); Mean Corpuscular Volume 91 fl (79-97); Monocytes # (Auto) 0.6 K/mm3 (0.0-0.8); Monocytes % (Auto) 10.7 % (0.0-7.3); Platelet Count 267 K/mm3 (140-440); Red Blood Count 4.19 M/mm3 (3.65-5.03)
[2019-11-30 04:08] LABS: Alanine Aminotransferase 19 units/L (7-56); Albumin 4.2 g/dL (3.9-5); Blood Urea Nitrogen 12 mg/dL (7-17); Calcium 8.7 mg/dL (8.4-10.2); Hemolysis Index 6
[2019-11-30 04:12] LABS: BUN/Creatinine Ratio 17
[2019-11-30 04:27] LABS: Bacteria,Urine 1+ /HPF (Negative); Bilirubin,Urine NEG (Negative); Blood,Urine NEG (Negative); Color,Urine Yellow (Yellow); Mucus,Urine 1+ /HPF; Protein,Urine <15 mg/dL mg/dL (Negative)
[2019-11-30] MEDS ORDERED: ONDANSETRON 4 MG ODT TAB PO ONE (05:37)
[2019-11-30] MEDS ORDERED: BUTALB/ACETAMINOPHEN/CAFFEINE TAB PO ONE (05:37)
--- NOTE | 2019-11-30 05:43 | Emergency Department Report ---
ED Headache HPI - General Chief Complaint: Nausea/Vomiting/Diarrhea Stated Complaint: VOMITING NAUSEA HEADACHE LIGHTHEADED Source: patient Exam Limitations: no limitations - History of Present Illness Initial Comments: Patient is a 29-year-old -[place] female with a history of chronic migraine headaches, exercise-induced asthma, anxiety and depression who presents to the ED with acute exacerbation of her chronic migraine headaches characterized by frontal sinus sinus pressure and headache with nausea and vomiting for the last 6 to 8 hours. Patient states that her symptoms got worse in the last 4 hours. Patient states that she tried to take some of the medication that had previously been prescribed for her at home with no relief since she could not keep anything down. Patient denies change in vision, syncope, dizziness, abdominal pain, nasal and sinus congestion, cough, chest pain or shortness of breath, fever, chills, dysuria, urinary frequency and urgency, traumatic injury, seizures or sore throat. Timing/Duration: 4-6 hours, constant, waxing and waning, other Quality: severe, constant, pressure, sharp Head Injury Location: frontal Recent Head Trauma: no recent headache/trauma, chronic headaches Associated Symptoms: denies symptoms, facial pain, nausea/vomiting. denies: confusion, fatigue, fever/chills, flushing, loss of consciousness, nasal con gestion, nasal drainage, numbness in legs/feet, seizures, sinus infection, stiff neck, vision changes Allergies/Adverse Reactions: Allergies metoclopramide [From Reglan] Adverse Reaction (Verified 06/29/19 02:14) Unknown Makes her fell jittery. Home Medications: Ambulatory Orders Ibuprofen [Motrin 200 MG tab] 800 mg PO Q8H PRN 04/28/17 Ibuprofen [Motrin] 800 mg PO Q8HR PRN #15 tablet 04/28/17 Ondansetron [Zofran TAB] 4 mg PO Q8HR PRN #20 tablet 04/28/17 Phenylephrine/Dm/Acetaminop/GG [Mucinex Ktbw-Qsd-Muqmvuxxlb Lq] 20 ml PO Q4HR GA N #180 liquid 04/28/17 Amoxicillin [Trimox CAP] 500 mg PO BID #14 capsule 01/07/19 Naproxen [Naprosyn] 500 mg PO BID #20 tablet 01/07/19 traMADoL [Ultram 50 MG tab] 50 mg PO Q6HR PRN #12 tablet 01/07/19 Dicyclomine [Bentyl] 20 mg PO Q6HR PRN #14 tablet 02/24/19 Ondansetron [Zofran Odt] 4 mg PO Q8HR PRN #14 tab.rapdis 02/24/19 Dicyclomine [Bentyl] 20 mg PO Q6H PRN #24 tablet 04/07/19 Famotidine [Pepcid] 20 mg PO Q12H #30 tablet 04/07/19 Ondansetron [Zofran ODT TAB] 8 mg PO Q8HR PRN #24 tab.rapdis 04/07/19 diphenhydrAMINE [Benadryl CAP] 25 mg PO Q6HR PRN #20 capsule 04/07/19 Amoxicillin/Potassium Clav [Augmentin 875-125 Tablet] 1 each PO Q12H #20 tablet 06/02/19 Butalb/Acetamin/Caff 50-325-40 [Fioricet 50-325-40] 1 - 2 tab PO Q6HR PRN #15 tab 06/02/19 Butalb/Acetaminophen/Caffeine [Fioricet 50-300-40 mg CAP] 1 cap PO Q6HR PRN #12 cap 06/12/19 Famotidine [Pepcid] 20 mg PO Q12H #60 tablet 06/29/19 Ondansetron [Zofran Odt] 4 mg PO Q6HR PRN #20 tab.rapdis 06/29/19 Butalb/Acetamin/Caff 50-325-40 [Fioricet 50-325-40] 1 - 2 tab PO Q6HR PRN #15 tab 09/28/19 Ketorolac [Toradol] 10 mg PO Q8H PRN #20 tablet 09/28/19 Ondansetron [Zofran ODT TAB] 4 mg PO Q6HR PRN #20 tab.rapdis 09/28/19 Acetaminophen/Codeine [Tylenol /Codeine # 3 tab] 1 tab PO Q6H PRN #10 tab 11/02/19 Acyclovir 400 mg PO Q8H #30 tablet 11/02/19 Amoxicillin [Trimox CAP] 500 mg PO Q8H #30 capsule 11/02/19 Ibuprofen [Motrin] 800 mg PO Q8HR PRN #30 tablet 11/02/19 Lidocaine Viscous 2% 10 ml PO Q4H PRN #120 ml 11/02/19 Ondansetron [Zofran Odt] 4 mg PO Q6HR PRN #15 tab.rapdis 11/02/19 Butalb/Acetamin/Caff 50-325-40 [Fioricet 50-325-40] 1 - 2 tab PO Q6HR PRN #15 tab 11/30/19 Ketorolac [Toradol] 10 mg PO Q8H PRN #20 tablet 11/30/19 Ondansetron [Zofran Odt] 4 mg PO Q6HR PRN #20 tab.rapdis 11/30/19 ED Review of Systems ROS: Stated complaint: VOMITING NAUSEA HEADACHE LIGHTHEADED Other details as noted in HPI Constitutional: denies: chills, fever Eyes: denies: eye pain, eye discharge, vision change ENT: other (Frontal sinus pressure and headache). denies: ear pain, throat pain Respiratory: denies: cough, shortness of breath, wheezing Cardiovascular: denies: chest pain, palpitations Endocrine: no symptoms reported Gastrointestinal: nausea, vomiting. denies: abdominal pain, diarrhea Genitourinary: denies: urgency, dysuria, discharge Musculoskeletal: denies: back pain, joint swelling, arthralgia Skin: denies: rash, lesions Neurological: headache. denies: weakness, paresthesias Psychiatric: denies: anxiety, depression Hematological/Lymphatic: denies: easy bleeding, easy bruising ED Past Medical Hx - Past Medical History Previous Medical History?: Yes Hx Headaches / Migraines: Yes Hx Psychiatric Treatment: Yes (DEPRESSION) Hx Asthma: Yes (exercise induced) - Surgical History Past Surgical History?: Yes Additional Surgical History: Vaginal Cyst removed - Social History Smoking Status: Never Smoker Substance Use Type: None - Medications Home Medications: Home Medications Medication Instructions Recorded Confirmed Last Taken Type Ibuprofen [Motrin 200 MG tab] 800 mg PO Q8H PRN 04/28/17 04/28/17 Unknown History Ibuprofen [Motrin] 800 mg PO Q8HR PRN #15 tablet 04/28/17 Unknown Rx Ondansetron [Zofran TAB] 4 mg PO Q8HR PRN #20 tablet 04/28/17 Unknown Rx Phenylephrine/Dm/Acetaminop/GG 20 ml PO Q4HR PRN #180 liquid 04/28/17 Unknown Rx [Mucinex Ppmp-Uik-Pcknfqvufe Lq] Amoxicillin [Trimox CAP] 500 mg PO BID #14 capsule 01/07/19 Unknown Rx Naproxen [Naprosyn] 500 mg PO BID #20 tablet 01/07/19 Unknown Rx traMADoL [Ultram 50 MG tab] 50 mg PO Q6HR PRN #12 tablet 01/07/19 Unknown Rx Dicyclomine [Bentyl] 20 mg PO Q6HR PRN #14 tablet 02/24/19 Unknown Rx Ondansetron [Zofran Odt] 4 mg PO Q8HR PRN #14 tab.rapdis 02/24/19 Unknown Rx Dicyclomine [Bentyl] 20 mg PO Q6H PRN #24 tablet 04/07/19 Unknown Rx Famotidine [Pepcid] 20 mg PO Q12H #30 tablet 04/07/19 Unknown Rx Ondansetron [Zofran ODT TAB] 8 mg PO Q8HR PRN #24 tab.rapdis 04/07/19 Unknown Rx diphenhydrAMINE [Benadryl CAP] 25 mg PO Q6HR PRN #20 capsule 04/07/19 Unknown Rx Amoxicillin/Potassium Clav 1 each PO Q12H #20 tablet 06/02/19 Unknown Rx [Augmentin 875-125 Tablet] Butalb/Acetamin/Caff 50-325-40 1 - 2 tab PO Q6HR PRN #15 tab 06/02/19 Unknown Rx [Fioricet 50-325-40] Butalb/Acetaminophen/Caffeine 1 cap PO Q6HR PRN #12 cap 06/12/19 Unknown Rx [Fioricet 50-300-40 mg CAP] Famotidine [Pepcid] 20 mg PO Q12H #60 tablet 06/29/19 Unknown Rx Ondansetron [Zofran Odt] 4 mg PO Q6HR PRN #20 tab.rapdis 06/29/19 Unknown Rx Butalb/Acetamin/Caff 50-325-40 1 - 2 tab PO Q6HR PRN #15 tab 09/28/19 Unknown Rx [Fioricet 50-325-40] Ketorolac [Toradol] 10 mg PO Q8H PRN #20 tablet 09/28/19 Unknown Rx Ondansetron [Zofran ODT TAB] 4 mg PO Q6HR PRN #20 tab.rapdis 09/28/19 Unknown Rx Acetaminophen/Codeine [Tylenol 1 tab PO Q6H PRN #10 tab 11/02/19 Unknown Rx /Codeine # 3 tab] Acyclovir 400 mg PO Q8H #30 tablet 11/02/19 Unknown Rx Amoxicillin [Trimox CAP] 500 mg PO Q8H #30 capsule 11/02/19 Unknown Rx Ibuprofen [Motrin] 800 mg PO Q8HR PRN #30 tablet 11/02/19 Unknown Rx Lidocaine Viscous 2% 10 ml PO Q4H PRN #120 ml 11/02/19 Unknown Rx Ondansetron [Zofran Odt] 4 mg PO Q6HR PRN #15 tab.rapdis 11/02/19 Unknown Rx Butalb/Acetamin/Caff 50-325-40 1 - 2 tab PO Q6HR PRN #15 tab 11/30/19 Unknown Rx [Fioricet 50-325-40] Ketorolac [Toradol] 10 mg PO Q8H PRN #20 tablet 11/30/19 Unknown Rx Ondansetron [Zofran Odt] 4 mg PO Q6HR PRN #20 tab.rapdis 11/30/19 Unknown Rx ED Physical Exam - General Limitations: No Limitations General appearance: alert, in no apparent distress - Head Head exam: Present: atraumatic, normocephalic, normal inspection - Eye Eye exam: Present: normal appearance, PERRL, EOMI Pupils: Present: normal accommodation - ENT ENT exam: Present: normal exam, normal orophraynx, mucous membranes moist, TM's normal bilaterally, normal external ear exam, other (Palpable frontal sinus tenderness) - Neck Neck exam: Present: normal inspection - Respiratory Respiratory exam: Present: normal lung sounds bilaterally. Absent: respiratory distress, wheezes, rales, rhonchi, chest wall tenderness, accessory muscle use - Cardiovascular Cardiovascular Exam: Present: regular rate, normal rhythm, normal heart sounds. Absent: systolic murmur, diastolic murmur, rubs, gallop - GI/Abdominal GI/Abdominal exam: Present: soft, normal bowel sounds. Absent: tenderness, guarding, rebound, hyperactive bowel sounds, hypoactive bowel sounds, organomegaly - Extremities Exam Extremities exam: Present: normal inspection, full ROM, normal capillary refill - Back Exam Back exam: Present: normal inspection, full ROM. Absent: tenderness, CVA tenderness (R), CVA tenderness (L), muscle spasm, paraspinal tenderness, vertebral tenderness - Neurological Exam Neurological exam: Present: alert, oriented X3, CN II-XII intact, normal gait, reflexes normal - Psychiatric Psychiatric exam: Present: normal affect, normal mood, anxious - Skin Skin exam: Present: warm, dry, intact, normal color. Absent: rash ED Course Vital Signs 11/30/19 03:15 Temperature 98.6 F Pulse Rate 99 H Respiratory 18 Rate Blood Pressure 137/83 O2 Sat by Pulse 99 Oximetry ED Medical Decision Making - Lab Data Result diagrams: 11/30/19 03:36 11/30/19 03:36 - Medical Decision Making This is a 29-year-old -[place] female with a history of chronic migraine headaches, exercise-induced asthma, anxiety and depression who presents to the ED with acute exacerbation of her chronic migraine headaches characterized by frontal sinus sinus pressure and headache with nausea and vomiting for the last 6 to 8 hours. Patient states that her symptoms got worse in the last 4 hours. Patient states that she tried to take some of the medication that had previously been prescribed for her at home with no relief since she could not keep anything down. In the ED, patient is alert and oriented x3 and is not in distress. Patient was treated for nausea and vomiting in the ED and also given pain m edications. Lab test results were reviewed and are all nonactionable. On reevaluation, patient's pain is well controlled medications. Patient will discharge home on pain medications and antiemetics and was advised to follow-up with her primary care physician in 3 to 5 days for reevaluation or return to the ED immediately if symptoms get worse. - Differential Diagnosis Migraine headache; sinus headache; dehydration; viral syndrome; sinusitis Critical care attestation.: If time is entered above; I have spent that time in minutes in the direct care of this critically ill patient, excluding procedure time. ED Disposition Clinical Impression: Nausea and vomiting in adult patient Migraine headache without aura Qualifiers: Status migrainosus presence: with status migrainosus Intractability: not intractable Qualified Code(s): G43.001 - Migraine without aura, not intractable, with status migrainosus Disposition: TO HOME OR SELFCARE Is pt being admited?: No Does the pt Need Aspirin: No Condition: Stable Instructions: Migraine Headache (ED), Acute Nausea and Vomiting (ED) Additional Instructions: Lab test results were reviewed and are all nonactionable. Take medication with food, drink plenty of fluids and follow-up with your primary care physician in 5 to 7 days for reevaluation. Return to the ED immediately if symptoms get worse. Prescriptions: Butalb/Acetamin/Caff 50-325-40 [Fioricet 50-325-40] 1 - 2 tab PO Q6HR PRN #15 tab PRN Reason: Headache Ketorolac [Toradol] 10 mg PO Q8H PRN #20 tablet PRN Reason: Pain Ondansetron [Zofran Odt] 4 mg PO Q6HR PRN #20 tab.rapdis PRN Reason: Nausea Referrals: [facility] [Provider Group] - 3-5 Days Time of Disposition: 05:48 Print Language: TONGAN
[2019-11-30] MEDS: KETOROLAC 30 MG/1 ML INJ IM ONE ×2 (06:01→06:03)
== END 2019-11-30 06:30 | disposition home or self-care (01) ==
LOC: ED 02:11
DX: G43.009 Migraine without aura, not intractable, without status migrainosus (principal); R11.2 Nausea with vomiting, unspecified; F32.9 Major depressive disorder, single episode, unspecified; J45.909 Unspecified asthma, uncomplicated; Z79.1 Long term (current) use of non-steroidal anti-inflammatories (NSAID); Z79.899 Other long term (current) drug therapy; Z98.890 Other specified postprocedural states
CPT/HCPCS: 36415; 80053; 81001; 83690; 84703; 85025; 99283; J1885; Q0162

== ENCOUNTER 2019-12-12 06:38 | Emergency (ER) | payer SELFPAY ==
[2019-12-12 06:47] VITALS: BP 136/87
[2019-12-12] MEDS ORDERED: ONDANSETRON 4 MG ODT TAB PO ONE (09:12)
[2019-12-12] MEDS ORDERED: BUTALB/ACETAMINOPHEN/CAFFEINE TAB PO ONE (09:13)
--- NOTE | 2019-12-12 09:13 | Emergency Department Report ---
ED Headache HPI - General Chief Complaint: Headache Stated Complaint: N/V,MIGRAINE HEADACHE Time Seen by Provider: 12/12/19 09:07 Source: patient - History of Present Illness Initial Comments: The patient was evaluated in the emergency department for symptoms described in the history of present illness. He/she was evaluated in the context of the global COVID-19 pandemic, which necessitated consideration that the patient might be at risk for infection with the virus that causes COVID-19. Institutional protocols and algorithms that pertain to the evaluation of patients at risk for COVID-19 are in a state of rapid change based on information released by regulatory bodies including the CDC and federal and state organizations. These policies and algorithms were followed during the patient's care in the emergency department. Please note that these policies, procedures and recommendations changed on a rapid basis. 29-year-old -H[place] female who is well-known to the emergency room for having migraine headaches. Patient reports that at 1 AM this morning she woke up with a migraine with nausea and vomiting. Patient states that she will usually get Zofran and Fioricet and that helps with her headaches but once she runs out the headaches return. Patient denies any follow-up with her neurologist or primary care provider. Patient denies any head injury no fever no chills no chest pain no change of vision. Patient does state that the light bothers her eyes. Patient also has a past medical history of exercise-induced asthma and depression. Timing/Duration: 1-3 hours Quality: moderate Head Injury Location: temporal Recent Head Trauma: frequent headaches Associated Symptoms: denies: facial pain, fever/chills, nausea/vomiting, nasal congestion, nasal drainage Allergies/Adverse Reactions: Allergies prochlorperazine [From Compazine] Allergy (Verified 12/12/19 06:46) Anaphylaxis ketorolac [From Toradol] Adverse Reaction (Verified 11/30/19 06:04) Dizziness metoclopramide [From Reglan] Adverse Reaction (Verified 06/29/19 02:14) Unknown Makes her fell jittery. Home Medications: Ambulatory Orders Ibuprofen [Motrin 200 MG tab] 800 mg PO Q8H PRN 04/28/17 Ibuprofen [Motrin] 800 mg PO Q8HR PRN #15 tablet 04/28/17 Ondansetron [Zofran TAB] 4 mg PO Q8HR PRN #20 tablet 04/28/17 Phenylephrine/Dm/Acetaminop/GG [Mucinex Afdc-Nnx-Iuhgshnmuh Lq] 20 ml PO Q4HR PRN #180 liquid 04/28/17 Amoxicillin [Trimox CAP] 500 mg PO BID #14 capsule 01/07/19 Naproxen [Naprosyn] 500 mg PO BID #20 tablet 01/07/19 traMADoL [Ultram 50 MG tab] 50 mg PO Q6HR PRN #12 tablet 01/07/19 Dicyclomine [Bentyl] 20 mg PO Q6HR PRN #14 tablet 02/24/19 Ondansetron [Zofran Odt] 4 mg PO Q8HR PRN #14 tab.rapdis 02/24/19 Dicyclomine [Bentyl] 20 mg PO Q6H PRN #24 tablet 04/07/19 Famotidine [Pepcid] 20 mg PO Q12H #30 tablet 04/07/19 Ondansetron [Zofran ODT TAB] 8 mg PO Q8HR PRN #24 tab.rapdis 04/07/19 diphenhydrAMINE [Benadryl CAP] 25 mg PO Q6HR PRN #20 capsule 04/07/19 Amoxicillin/Potassium Clav [Augmentin 875-125 Tablet] 1 each PO Q12H #20 tablet 06/02/19 Butalb/Acetamin/Caff 50-325-40 [Fioricet 50-325-40] 1 - 2 tab PO Q6HR PRN #15 tab 06/02/19 Butalb/Acetaminophen/Caffeine [Fioricet 50-300-40 mg CAP] 1 cap PO Q6HR PRN #12 cap 06/12/19 Famotidine [Pepcid] 20 mg PO Q12H #60 tablet 06/29/19 Ondansetron [Zofran Odt] 4 mg PO Q6HR PRN #20 tab.rapdis 06/29/19 Butalb/Acetamin/Caff 50-325-40 [Fioricet 50-325-40] 1 - 2 tab PO Q6HR PRN #15 tab 09/28/19 Ketorolac [Toradol] 10 mg PO Q8H PRN #20 tablet 09/28/19 Ondansetron [Zofran ODT TAB] 4 mg PO Q6HR PRN #20 tab.rapdis 09/28/19 Acetaminophen/Codeine [Tylenol /Codeine # 3 tab] 1 tab PO Q6H PRN #10 tab 11/02/19 Acyclovir 400 mg PO Q8H #30 tablet 11/02/19 Amoxicillin [Trimox CAP] 500 mg PO Q8H #30 capsule 11/02/19 Ibuprofen [Motrin] 800 mg PO Q8HR PRN #30 tablet 11/02/19 Lidocaine Viscous 2% 10 ml PO Q4H PRN #120 ml 11/02/19 Ondansetron [Zofran Odt] 4 mg PO Q6HR PRN #15 tab.rapdis 11/02/19 Butalb/Acetamin/Caff 50-325-40 [Fioricet 50-325-40] 1 - 2 tab PO Q6HR PRN #15 tab 11/30/19 Ketorolac [Toradol] 10 mg PO Q8H PRN #20 tablet 11/30/19 Ondansetron [Zofran Odt] 4 mg PO Q6HR PRN #20 tab.rapdis 11/30/19 Ondansetron [Zofran Odt] 4 mg PO Q8HR #15 tab.rapdis 12/12/19 ED Review of Systems ROS: Stated complaint: N/V,MIGRAINE HEADACHE Other details as noted in HPI Comment: All other systems reviewed and negative ED Past Medical Hx - Past Medical History Hx Headaches / Migraines: Yes Hx Psychiatric Treatment: Yes (DEPRESSION) Hx Asthma: Yes (exercise induced) - Surgical History Additional Surgical History: Vaginal Cyst removed - Social History Smoking Status: Never Smoker Substance Use Type: None - Medications Home Medications: Home Medications Medication Instructions Recorded Confirmed Last Taken Type Ibuprofen [Motrin 200 MG tab] 800 mg PO Q8H PRN 18 04/28/17 Unknown History Ibuprofen [Motrin] 800 mg PO Q8HR PRN #15 tablet 04/28/17 Unknown Rx Ondansetron [Zofran TAB] 4 mg PO Q8HR PRN #20 tablet 04/28/17 Unknown Rx Phenylephrine/Dm/Acetaminop/GG 20 ml PO Q4HR PRN #180 liquid 04/28/17 Unknown Rx [Mucinex Oszn-Ioi-Cdmqvqpmfc Lq] Amoxicillin [Trimox CAP] 500 mg PO BID #14 capsule 01/07/19 Unknown Rx Naproxen [Naprosyn] 500 mg PO BID #20 tablet 01/07/19 Unknown Rx traMADoL [Ultram 50 MG tab] 50 mg PO Q6HR PRN #12 tablet 01/07/19 Unknown Rx Dicyclomine [Bentyl] 20 mg PO Q6HR PRN #14 tablet 02/24/19 Unknown Rx Ondansetron [Zofran Odt] 4 mg PO Q8HR PRN #14 tab.rapdis 02/24/19 Unknown Rx Dicyclomine [Bentyl] 20 mg PO Q6H PRN #24 tablet 04/07/19 Unknown Rx Famotidine [Pepcid] 20 mg PO Q12H #30 tablet 04/07/19 Unknown Rx Ondansetron [Zofran ODT TAB] 8 mg PO Q8HR PRN #24 tab.rapdis 04/07/19 Unknown Rx diphenhydrAMINE [Benadryl CAP] 25 mg PO Q6HR PRN #20 capsule 04/07/19 Unknown Rx Amoxicillin/Potassium Clav 1 each PO Q12H #20 tablet 06/02/19 Unknown Rx [Augmentin 875-125 Tablet] Butalb/Acetamin/Caff 50-325-40 1 - 2 tab PO Q6HR PRN #15 tab 06/02/19 Unknown Rx [Fioricet 50-325-40] Butalb/Acetaminophen/Caffeine 1 cap PO Q6HR PRN #12 cap 06/12/19 Unknown Rx [Fioricet 50-300-40 mg CAP] Famotidine [Pepcid] 20 mg PO Q12H #60 tablet 06/29/19 Unknown Rx Ondansetron [Zofran Odt] 4 mg PO Q6HR PRN #20 tab.rapdis 06/29/19 Unknown Rx Butalb/Acetamin/Caff 50-325-40 1 - 2 tab PO Q6HR PRN #15 tab 09/28/19 Unknown Rx [Fioricet 50-325-40] Ketorolac [Toradol] 10 mg PO Q8H PRN #20 tablet 09/28/19 Unknown Rx Ondansetron [Zofran ODT TAB] 4 mg PO Q6HR PRN #20 tab.rapdis 09/28/19 Unknown Rx Acetaminophen/Codeine [Tylenol 1 tab PO Q6H PRN #10 tab 11/02/19 Unknown Rx /Codeine # 3 tab] Acyclovir 400 mg PO Q8H #30 tablet 11/02/19 Unknown Rx Amoxicillin [Trimox CAP] 500 mg PO Q8H #30 capsule 11/02/19 Unknown Rx Ibuprofen [Motrin] 800 mg PO Q8HR PRN #30 tablet 11/02/19 Unknown Rx Lidocaine Viscous 2% 10 ml PO Q4H PRN #120 ml 11/02/19 Unknown Rx Ondansetron [Zofran Odt] 4 mg PO Q6HR PRN #15 tab.rapdis 11/02/19 Unknown Rx Butalb/Acetamin/Caff 50-325-40 1 - 2 tab PO Q6HR PRN #15 tab 11/30/19 Unknown Rx [Fioricet 50-325-40] Ketorolac [Toradol] 10 mg PO Q8H PRN #20 tablet 11/30/19 Unknown Rx Ondansetron [Zofran Odt] 4 mg PO Q6HR PRN #20 tab.rapdis 11/30/19 Unknown Rx Ondansetron [Zofran Odt] 4 mg PO Q8HR #15 tab.rapdis 12/12/19 Unknown Rx ED Physical Exam - General Limitations: No Limitations General appearance: alert, in no apparent distress - Head Head exam: Present: atraumatic, normocephalic - ENT ENT exam: Present: mucous membranes moist - Neck Neck exam: Present: normal inspection, full ROM - Respiratory Respiratory exam: Absent: accessory muscle use ED Course Vital Signs 12/12/19 06:42 Temperature 98.0 F Pulse Rate 108 H Respiratory 17 Rate Blood Pressure 136/87 O2 Sat by Pulse 98 Oximetry ED Medical Decision Making - Medical Decision Making 29-year-old -[place] female who is well-known to the emergency room for having migraine headaches. Patient reports that at 1 AM this morning she woke up with a migraine with nausea and vomiting. Patient states that she will usually get Zofran and Fioricet and that helps with her headaches but once she runs out the headaches return. Patient denies any follow-up with her neurologist or primary care provider. Patient denies any head injury no fever no chills no chest pain no change of vision. Patient does state that the light bothers her eyes. Patient also has a past medical history of exercise-induced a sthma and depression. Patient had a negative head CT May 2019. Patient has not followed up with a specialist. Patient was given Zofran and Fioricet during her ER visit. Discussed the patient that she needs to follow-up with a specialist and a primary care provider. Recommend to try taking [id number] Excedrin Migraine. Critical care attestation.: If time is entered above; I have spent that time in minutes in the direct care of this critically ill patient, excluding procedure time. ED Disposition Clinical Impression: Migraine headache without aura Disposition: - TO HOME OR SELFCARE Is pt being admited?: No Does the pt Need Aspirin: No Condition: Stable Instructions: Migraine Headache (ED) Additional Instructions: Please take Zofran as needed for nausea. Placed trial [id number] Excedrin migraine headache and to follow-up with the neurologist I have listed several below for your convenience. Prescriptions: Ondansetron [Zofran Odt] 4 mg PO Q8HR #15 tab.rapdis Referrals: PRIMARY CAREMD [Primary Care Provider] - 3-5 Days SHIVA GRAVES MD [Referring] - 3-5 Days [facility] [Provider Group] - 3-5 Days [facility] [Provider Group] - 3-5 Days Forms: Work/School Release Form(ED)
== END 2019-12-12 09:45 | disposition home or self-care (01) ==
LOC: ED 06:38
DX: G43.009 Migraine without aura, not intractable, without status migrainosus (principal); F32.9 Major depressive disorder, single episode, unspecified; J45.909 Unspecified asthma, uncomplicated; Z98.890 Other specified postprocedural states; Z79.1 Long term (current) use of non-steroidal anti-inflammatories (NSAID); Z88.8 Allergy status to other drugs, medicaments and biological substances
CPT/HCPCS: 99282; Q0162

== ENCOUNTER 2021-02-11 10:23 | Emergency (ER) | payer SELFPAY ==
[2021-02-11] MEDS ORDERED: HYDROcodone/ACETAMINOPHEN 5-325 MG TAB PO ONE (12:51)
--- NOTE | 2021-02-11 12:51 | Emergency Department Report ---
ED General Adult HPI - General Chief complaint: Dental/Oral Stated complaint: DENTAL PAIN Time Seen by Provider: 02/11/21 12:35 Source: patient Mode of arrival: Ambulatory Limitations: No Limitations - History of Present Illness Initial comments: 30-year-old -[place] female patient presents with complaints of intermittent left lower dental pain for the past year worsening over the past day suddenly. She states that she has diffuse dental cavities and has not been following with a dental specialist due to not having dental insurance. She ra freedom her current pain as a 10/10 in severity and states ibuprofen is not helping. She denies any dysphagia, fever/chills/sweats, facial swelling, chest pain, or cough. No other past medical history per patient. Drug allergies include Reglan and Compazine Severity scale (0 -10): 10 - Related Data Previous Rx's Medication Instructions Recorded Last Taken Type Dicyclomine [Bentyl] 20 mg PO Q6H PRN #24 tablet 04/07/19 Unknown Rx Butalb/Acetaminophen/Caffeine 1 cap PO Q6HR PRN #12 cap 06/12/19 Unknown Rx [Fioricet 50-300-40 mg CAP] Famotidine [Pepcid] 20 mg PO Q12H #60 tablet 06/29/19 Unknown Rx Acyclovir 400 mg PO Q8H #30 tablet 11/02/19 Unknown Rx Ondansetron [Zofran Odt] 4 mg PO Q8HR PRN #10 tab.rapdis 07/22/20 Unknown Rx Acetaminophen/Codeine [Tylenol 1 tab PO Q8H PRN #10 tab 02/11/21 Unknown Rx /Codeine # 3 tab] Ibuprofen [Motrin 800 MG tab] 800 mg PO Q8HR PRN #20 tablet 02/11/21 Unknown Rx Penicillin V Potassium 500 mg PO QID 7 Days #28 tablet 02/11/21 Unknown Rx Allergies Allergy/AdvReac Type Severity Reaction Status Date / Time prochlorperazine Allergy Anaphylaxis Verified 12/12/19 06:46 [From Compazine] ketorolac [From Toradol] AdvReac Dizziness Verified 11/30/19 06:04 metoclopramide [From Reglan] AdvReac Unknown Verified 06/29/19 02:14 ED Review of Systems ROS: Stated complaint: DENTAL PAIN Other details as noted in HPI Constitutional: denies: chills, fever, malaise ENT: dental pain. denies: throat pain Respiratory: denies: cough Cardiovascular: denies: chest pain Skin: denies: change in color Hematological/Lymphatic: denies: swollen glands ED Past Medical Hx - Past Medical History Hx Headaches / Migraines: Yes Hx Psychiatric Treatment: Yes (DEPRESSION) Hx Asthma: Yes (exercise induced) - Surgical History Additional Surgical History: Vaginal Cyst removed - Social History Smoking Status: Never Smoker Substance Use Type: None - Medications Home Medications: Home Medications Medication Instructions Recorded Confirmed Last Taken Type Dicyclomine [Bentyl] 20 mg PO Q6H PRN #24 tablet 04/07/19 Unknown Rx Butalb/Acetaminophen/Caffeine 1 cap PO Q6HR PRN #12 cap 06/12/19 Unknown Rx [Fioricet 50-300-40 mg CAP] Famotidine [Pepcid] 20 mg PO Q12H #60 tablet 06/29/19 Unknown Rx Acyclovir 400 mg PO Q8H #30 tablet 11/02/19 Unknown Rx Ondansetron [Zofran Odt] 4 mg PO Q8HR PRN #10 tab.rapdis 07/22/20 Unknown Rx Acetaminophen/Codeine [Tylenol 1 tab PO Q8H PRN #10 tab 02/11/21 Unknown Rx /Codeine # 3 tab] Ibuprofen [Motrin 800 MG tab] 800 mg PO Q8HR PRN #20 tablet 02/11/21 Unknown Rx Penicillin V Potassium 500 mg PO QID 7 Days #28 tablet 02/11/21 Unknown Rx ED Physical Exam - General Limitations: No Limitations General appearance: alert, in no apparent distress - Head Head exam: Present: atraumatic, normocephalic - Eye Eye exam: Present: normal appearance - Expanded ENT Exam Expanded Mouth exam: Absent: drooling, trismus Teeth exam: Present: dental caries 1 - Dental Tenderness (Mild surrounding erythema and swelling noted without obvious dental abscess with deep dental carry noted in the wisdom tooth) - Neck Neck exam: Present: normal inspection. Absent: lymphadenopathy - Respiratory Respiratory exam: Present: normal lung sounds bilaterally. Absent: respiratory distress - Cardiovascular Cardiovascular Exam: Present: regular rate - Neurological Exam Neurological exam: Present: alert, oriented X3 - Psychiatric Psychiatric exam: Present: normal affect, normal mood - Skin Skin exam: Present: warm, dry, intact, normal color. Absent: rash ED Course Vital Signs 02/11/21 10:27 Temperature 97.9 F Pulse Rate 88 Respiratory 18 Rate Blood Pressure 120/89 [Left] O2 Sat by Pulse 98 Oximetry ED Medical Decision Making - Medical Decision Making 30-year-old -[place] female patient presents with complaints of intermittent left lower dental pain for the past year worsening over the past day suddenly. She states that she has diffuse dental cavities and has not been following with a dental specialist due to not having dental insurance. She rates her current pain as a 10/10 in severity and states ibuprofen is not helping. She denies any dysphagia, fever/chills/sweats, facial swelling, chest pain, or cough. No other past medical history per patient. Drug allergies include Reglan and Compazine Diffuse dental caries noted with significant tenderness to the left lower wisdom tooth and surrounding erythema. Will treat with penicillin. Patient provided with dental referral list and informed to follow-up within 2 to 3 days. She is otherwise well-appearing, her vitals are within normal limits, she is stable for discharge home. Discussed in detail signs and symptoms that should prompt immediate return to ED with patient verbalizes understanding Critical care attestation.: If time is entered above; I have spent that time in minutes in the direct care of this critically ill patient, excluding procedure time. ED Disposition Clinical Impression: Infected dental caries Disposition: 01 HOME / SELF CARE / HOMELESS Is pt being admited?: No Condition: Stable Instructions: Dental Abscess Additional Instructions: Please follow-up with a dental specialist from the list provided or your own within 2-3 days Prescriptions: Ibuprofen [Motrin 800 MG tab] 800 mg PO Q8HR PRN #20 tablet PRN Reason: pain Penicillin V Potassium 500 mg PO QID 7 Days #28 tablet Acetaminophen/Codeine [Tylenol /Codeine # 3 tab] 1 tab PO Q8H PRN #10 tab PRN Reason: Pain , Severe (7-10) Referrals: [facility] [Outside] - 3-5 Days Forms: Work/School Release Form(ED)
[2021-02-11 13:40] VITALS: BP 123/81
== END 2021-02-11 13:48 | disposition home or self-care (01) ==
LOC: ED 10:23
DX: K02.9 Dental caries, unspecified (principal); J45.909 Unspecified asthma, uncomplicated; G43.909 Migraine, unspecified, not intractable, without status migrainosus
CPT/HCPCS: 99282